=== PATIENT | female | born 1960 | race Caucasian/White ===

== ENCOUNTER → 2017-09-19 09:59 | Outpatient (CLI) | payer OTHER, SELFPAY ==
[2017-09-20 13:29] LABS: Anion Gap 7 (5-15); BUN 15 mg/dL (7-18); BUN/Creat Ratio 20.3 RATIO (10-20); Calcium,Total 8.6 mg/dL (8.5-10.1); Chloride 108 mmol/L (98-107); Cholesterol 161 mg/dL (200); Creatinine, Serum 0.74 mg/dL (0.55-1.02); EST Glomerular Filtration Rate 86 mL/min (>60); Est Glom Filt Rate - Afr Amer 103 mL/min (>60); Glucose 99 mg/dL (74-106); High Density Lipoprotein 64 mg/dL; Potassium 4.2 mmol/L (3.5-5.1); Sodium Level 142 mmol/L (136-145); Triglycerides 83 mg/dL; Very Low Density Lipoprotein 17 mg/dL (5-40)
== END ==
PROVIDERS: Family Provider Family Medicine; PCP Family Medicine; Visit Provider Family Medicine
DX: E78.00 Pure hypercholesterolemia, unspecified (principal)
CPT/HCPCS: 36415; 80048; 80061

== ENCOUNTER → 2018-06-27 09:08 | Outpatient (CLI) | payer OTHER, SELFPAY ==
[2018-06-27 09:56] LABS: CREATININE FINGERSTICK 0.9 mg/dL (0.55-1.02); EGFR FINGERSTICK > 60.0000 mL/min (>60)
--- NOTE | 2018-06-27 10:00 | MRI_ITS ---
STUDY: MRI BRAIN WITH AND WITHOUT CONTRAST REASON FOR EXAM: Female, 58 years old. Vascular congestion in the left eye. TECHNIQUE: Standardized multiplanar fat and water weighted pulse sequences were obtained. 7 ml of Gadavist contrast material was administered intravenously for the contrast portion of the examination. COMPARISON: None. FINDINGS: Normal size of the ventricles and extra-axial spaces for the patient's age. Normal white matter tracts of the supratentorial brain. Normal bilateral basal ganglia. Normal thalami. There is no extra-axial fluid accumulation. Normal flow voids within the major intracranial circulation suggesting patency by spin echo criteria. Normal venous enhancement. There is no enhancing intra-axial or extra-axial abnormality. Normal sella turcica, pituitary gland, infundibular stalk, optic chiasm and hypothalamus. Normal tectal plate and pineal gland. Normal midbrain, edinson and medulla. Normal cerebellum. Normal basal cisterns. Normal bilateral temporal bones. Normal bilateral internal auditory canals. No demonstrated orbital abnormality, within the constraints of a routine brain study. Pronounced mucosal thickening with complete obliteration of the right maxillary sinus. Pronounced mucosal thickening with contraction of the right sphenoid sinus. Mildly. Thickening of the left sphenoid sinus. Mucosal thickening with contraction of the left anterior ethmoid sinus. Suspicious polyp in the left nasal cavity. Normal calvarium and skull base. Normal visualized soft tissue structures. Normal visualized upper cervical spine. MRI/Brain W/WO Contrast IMPRESSION: 1. Normal MRI of the brain with and without intravenous contrast. No suspicious enlargement of the superior ophthalmic veins or cavernous sinuses to suggest dural AV fistula causing orbital vascular congestion. If dural AV fistula remains a strong clinical consideration, cerebral arteriogram with bilateral external carotid arteriogram will be more helpful for further evaluation. 2. Pronounced mucosal thickening with complete obliteration of the right maxillary sinus, pronounced mucosal thickening with contraction of the hypoplastic right sphenoid sinus, mild mucosal thickening of the left sphenoid sinus and mucosal thickening with contraction of the left anterior ethmoid sinus. 3. Suspicious polyp in the left nasal cavity. CT of the paranasal sinuses will be more helpful for paranasal sinus evaluation. Electronically Signed: Jose Saeed MD at 15:40 EST , Service support ,
--- NOTE | 2018-06-27 10:00 | MRI_ITS ---
STUDY: MRA OF THE HEAD WITHOUT CONTRAST REASON FOR EXAM: Female, 58 years old. Vascular congestion, left eye. TECHNIQUE: 3-D [id number] (TOF) imaging was performed with MIPs. The study was performed unenhanced. COMPARISON: None. FINDINGS: Normal bilateral petrous carotid arteries. Normal right cavernous carotid artery with a normal supraclinoid bifurcation. Normal left cavernous carotid artery with a normal supraclinoid bifurcation. Normal right A1 segment of the anterior cerebral artery. Normal left A1 segment of the anterior cerebral artery. Normal intact anterior communicating artery (ACOM). Normal bilateral A2 segments of the anterior cerebral arteries. Normal right M1 and M2 segments of the middle cerebral arteries, with a normal M1 bifurcation. Normal left M1 and M2 segments of the middle cerebral arteries, with a normal M1 bifurcation. Normal right posterior communicating artery (PCOM). Hypoplastic left posterior communicating artery (PCOM). Normal bilateral vertebral arteries. Normal basilar artery with a normal basilar bifurcation. The visualized bilateral superior cerebellar (SCA) arteries are normal. Normal bilateral P1, P2 and visualized P3 segments of the posterior cerebral arteries. There is no demonstrated aneurysm of the [place]. There is no major vessel occlusion or hemodynamically significant stenosis. There is no demonstrated abnormality of the visualized brain. MRI/MRA Head ONLY without Contrast IMPRESSION: Normal MRA of the head Electronically Signed: Jose Saeed MD at 15:41 EST , Service support ,
== END ==
PROVIDERS: Family Provider Family Medicine; PCP Family Medicine; Referring Provider Ophthalmology; Visit Provider Ophthalmology
DX: H11.412 Vascular abnormalities of conjunctiva, left eye (principal); H40.1122 Primary open-angle glaucoma, left eye, moderate stage; H15.89 Other disorders of sclera
CPT/HCPCS: 70544; 70553; A9585

== ENCOUNTER → 2018-07-16 14:57 | Outpatient (CLI) | payer OTHER, SELFPAY ==
--- NOTE | 2018-07-16 15:00 | CT_ITS ---
STUDY: CT MAXILLOFACIAL SINUSES REASON FOR EXAM: Female, 58 years old. Glaucoma, left eye redness. History of right maxillary polyp removal. RADIATION DOSAGE (If Supplied By Facility): CTDIvol = ( 33.06 ) mGy, DLP = ( 846.25 ) mGycm TECHNIQUE: The patient was scanned in a multi detector CT scanner. High resolution axial imaging was performed without the administration of intravenous contrast material. Sagittal and coronal images were reconstructed. Individualized dose optimization techniques were used for this CT. COMPARISON: MRI brain (22/10/2017. FINDINGS: FRONTAL SINUSES: Mild mucoperiosteal thickening extends from the ethmoid sinuses into the base of the left frontal sinus. ETHMOIDAL SINUSES: Partial ethmoid resection with antrectomies bilaterally. Multifocal mildly comparison thickening and a few small round polypoid foci within the anterior ethmoid sinuses. Oval polypoid focus associated with the left superior turbinate, measuring approximately 1.6 cm in length, and 0.6 cm in diameter. MAXILLARY SINUSES: Large mucous retention cyst of the right maxillary sinus with a greatest dimension of approximately 3.4 cm craniocaudal, 3.8 cm anterior-posterior and 2.5 cm transverse. Prominently comparison thickening of the left maxillary sinus in particular at the base. SPHENOIDAL SINUSES: Normal sphenoid sinuses. Mastoid air cells and middle ear cavities are clear. Unremarkable cervical and superficial facial soft tissues. Orbital contents appear normal. Deep facial soft tissues appear normal. Pharyngeal and laryngeal structures appear normal. Mild cervical spondylosis with disc degeneration at C5-C6 without significant stenosis, only mild foraminal narrowing secondary to uncovertebral joint hypertrophy. CT/Sinus/Facial Bone IMPRESSION: There is extensive chronic paranasal sinus disease. Electronically Signed: Oneal Rainey MD at 17:55 EST Tel , Service support ,
--- OUTSIDE RECORDS SUMMARY | 2018-09-01 20:27 | XMS RPT_ITS ---
:1960 Author Organization OHIP Care Team Providers Name Role Phone MOE TOBAR Attending Unavailable PIPPA MEJIA (AIR BAG BUFFER) Referring Unavailable MOE TOBAR Referring Unavailable Anurag Courtney Attending Unavailable Anurag Courtney Primary Care Unavailable Pk Forbes Attending Unavailable Pk Forbes Referring Unavailable Anurag Courtnye Primary Care Unavailable Fox Uriarte Attending Unavailable Fox Uriarte Referring Unavailable Anurag Courtney Primary Care Unavailable PROBLEMS PROBLEMS DATE TYPE CONDITION / CODE ATTENDING STATUS SOURCE 05/26/2018 Active Encounter for NA Active [facility] screening [facility] mammogram for Repository malignant neoplasm of breast / Z12.31(ICD-10) PROCEDURES PROCEDURES No Procedure Records FoundRESULTS RESULTS SINUS/FACIAL BONE Observed: 07/16/2018 Status: F Source: [place] 3:00 PM [facility]ITORY [facility] Imaging Services [address] [place] [address] Sinus/Facial Bone MR#: [id number] Acct: [id number] Name: CONNIE LEVI Rep #: [id number] : 1960 F 58 From: Oneal Rainey MD PCP: Anurag Courtney MD Status: REG CLI Study: Sinus/Facial Bone Date of Exam: 07/16/18 Exam# [id number] Ordering Dr: Fox Uriarte MD STUDY: CT MAXILLOFACIAL SINUSES REASON FOR EXAM: Female, 58 years old. Glaucoma, left eye redness. History of right maxillary polyp removal. RADIATION DOSAGE (If Supplied By Facility): CTDIvol = ( 33.06 ) mGy, DLP = ( 846.25 ) mGycm TECHNIQUE: The patient was scanned in a multi detector CT scanner. High resolution axial imaging was performed without the administration of intravenous contrast material. Sagittal and coronal images were reconstructed. Individualized dose optimization techniques were used for this CT. COMPARISON: MRI brain (22/10/2017. FINDINGS: FRONTAL SINUSES: Mild mucoperiosteal thickening extends from the ethmoid sinuses into the base of the left frontal sinus. ETHMOIDAL SINUSES: Partial ethmoid resection with antrectomies bilaterally. Multifocal mildly comparison thickening and a few small round polypoid foci within the anterior ethmoid sinuses. Oval polypoid focus associated with the left superior turbinate, measuring approximately 1.6 cm in length, and 0.6 cm in diameter. MAXILLARY SINUSES: Large mucous retention cyst of the right maxillary sinus with a greatest dimension of approximately 3.4 cm craniocaudal, 3.8 cm anterior-posterior and 2.5 cm transverse. Prominently comparison thickening of the left maxillary sinus in particular at the base. SPHENOIDAL SINUSES: Normal sphenoid sinuses. Mastoid air cells and middle ear cavities are clear. Unremarkable cervical and superficial facial soft tissues. Orbital contents appear normal. Deep facial soft tissues appear normal. Pharyngeal and laryngeal structures appear normal. Mild cervical spondylosis with disc degeneration at C5-C6 without significant stenosis, only mild foraminal narrowing secondary to uncovertebral joint hypertrophy. CT/Sinus/Facial Bone IMPRESSION: There is extensive chronic paranasal sinus disease. Electronically Signed: Oneal Rainey MD at 17:55 EST Tel , Service support , CC: Fox Uriarte MD; Anurag Courtney MD Veterinarian Assistant: Signed CREATININE FINGERSTICK Collected: 06/27/2018 Status: F Source: [place] 9:35 AM [facility] REPOSITORY TYPE CODE TESTS RESULT OUT OF RANGE REFERENCE UNITS LAB L9100.0210 0.55-1.02 mg/dL Normal CREATININE WB 0.9 LAB L9100.0220 >60 mL/min EGFR WB Normal > 60.0000 Performed By: #### L9100.0200 #### [facility] Laboratory Point of Care [address] [place] [address] BRAIN W/WO CONTRAST Observed: 06/27/2018 Status: F Source: [place] 9:24 AM [facility]ORY [facility] Imaging Services [address] [place] [address] Brain W/WO Contrast MR#: [id number] Acct: [id number] Name: CONNIE LEVI Rep #: [id number] : 1960 F 58 From: Jose Saeed MD PCP: Anurag Courtney MD Status: REG CLI Study: Brain W/WO Contrast Date of Exam: 06/27/18 Exam# [id number] Ordering Dr: Pk Forbes MD ADDENDUM by Jose Saeed M.D. on 06/28/18 at 1151 ADDENDUM COMPARISON: MR of the brain with and without contrast 10/13/2014. IMPRESSION #4: Mucosal thickening of the paranasal sinuses have worsened and the suspicious polyp in the left nasal cavity were not present previously. No other additional findings or changes when compared to 10/13/2014. Electronically Signed: Jose Saeed MD at 11:51 EST , Service support , 06/28/18 1151 Date cc: Pk Forbes MD; Anurag Courtney MD * Signed ADDENDUM by Jose Saeed M.D. on 06/28/18 at 1151 MRI/Brain W/WO Contrast 06/28/18 1157 Date cc: Pk Forbes MD; Anurag Courtney MD * Signed STUDY: MRI BRAIN WITH AND WITHOUT CONTRAST REASON FOR EXAM: Female, 58 years old. Vascular congestion in the left eye. TECHNIQUE: Standardized multiplanar fat and water weighted pulse sequences were obtained. 7 ml of Gadavist contrast material was administered intravenously for the contrast portion of the examination. COMPARISON: None. FINDINGS: Normal size of the ventricles and extra-axial spaces for the patient's age. Normal white matter tracts of the supratentorial brain. Normal bilateral basal ganglia. Normal thalami. There is no extra-axial fluid accumulation. Normal flow voids within the major intracranial circulation suggesting patency by spin echo criteria. Normal venous enhancement. There is no enhancing intra-axial or extra-axial abnormality. Normal sella turcica, pituitary gland, infundibular stalk, optic chiasm and hypothalamus. Normal tectal plate and pineal gland. Normal midbrain, edinson and medulla. Normal cerebellum. Normal basal cisterns. Normal bilateral temporal bones. Normal bilateral internal auditory canals. No demonstrated orbital abnormality, within the constraints of a routine brain study. Pronounced mucosal thickening with complete obliteration of the right maxillary sinus. Pronounced mucosal thickening with contraction of the right sphenoid sinus. Mildly. Thickening of the left sphenoid sinus. Mucosal thickening with contraction of the left anterior ethmoid sinus. Suspicious polyp in the left nasal cavity. Normal calvarium and skull base. Normal visualized soft tissue structures. Normal visualized upper cervical spine. MRI/Brain W/WO Contrast IMPRESSION: 1. Normal MRI of the brain with and without intravenous contrast. No suspicious enlargement of the superior ophthalmic veins or cavernous sinuses to suggest dural AV fistula causing orbital vascular congestion. If dural AV fistula remains a strong clinical consideration, cerebral arteriogram with bilateral external carotid arteriogram will be more helpful for further evaluation. 2. Pronounced mucosal thickening with complete obliteration of the right maxillary sinus, pronounced mucosal thickening with contraction of the hypoplastic right sphenoid sinus, mild mucosal thickening of the left sphenoid sinus and mucosal thickening with contraction of the left anterior ethmoid sinus. 3. Suspicious polyp in the left nasal cavity. CT of the paranasal sinuses will be more helpful for paranasal sinus evaluation. Electronically Signed: Jose Saeed MD at 15:40 EST , Service support , CC: Pk Forbes MD; Anurag Courtney MD Veterinarian Assistant: Signed MRA HEAD ONLY WITHOUT Observed: 06/27/2018 Status: F Source: [place] CONTRAST 9:24 AM [facility] Imaging Services [address] [place] [address] MRA Head ONLY without Contrast MR#: [id number] Acct: [id number] Name: CONNIE LEVI Rep #: [id number] : 1960 F 58 From: Jose Saeed MD PCP: Anurag Courtney MD Status: REG CLI Study: MRA Head ONLY without Contrast Date of Exam: 06/27/18 Exam# [id number] Ordering Dr: Pk Forbes MD STUDY: MRA OF THE HEAD WITHOUT CONTRAST REASON FOR EXAM: Female, 58 years old. Vascular congestion, left eye. TECHNIQUE: 3-D gcqg-sk-xldymo (TOF) imaging was performed with MIPs. The study was performed unenhanced. COMPARISON: None. FINDINGS: Normal bilateral petrous carotid arteries. Normal right cavernous carotid artery with a normal supraclinoid bifurcation. Normal left cavernous carotid artery with a normal supraclinoid bifurcation. Normal right A1 segment of the anterior cerebral artery. Normal left A1 segment of the anterior cerebral artery. Normal intact anterior communicating artery (ACOM). Normal bilateral A2 segments of the anterior cerebral arteries. Normal right M1 and M2 segments of the middle cerebral arteries, with a normal M1 bifurcation. Normal left M1 and M2 segments of the middle cerebral arteries, with a normal M1 bifurcation. Normal right posterior communicating artery (PCOM). Hypoplastic left posterior communicating artery (PCOM). Normal bilateral vertebral arteries. Normal basilar artery with a normal basilar bifurcation. The visualized bilateral superior cerebellar (SCA) arteries are normal. Normal bilateral P1, P2 and visualized P3 segments of the posterior cerebral arteries. There is no demonstrated aneurysm of the [place]. There is no major vessel occlusion or hemodynamically significant stenosis. There is no demonstrated abnormality of the visualized brain. MRI/MRA Head ONLY without Contrast IMPRESSION: Normal MRA of the head Electronically Signed: Jose Saeed MD at 15:41 EST , Service support , CC: kP Forbes MD; Anurag Courtney MD Veterinarian Assistant: Signed CNCO Observed: 05/26/2018 Status: COMPLETED Source: [place] 12:42 PM [facility] [place] REPOSITORY HNO ID: [id number] Author: Mammography Coordinator Service: (none) Author Type: Physician Type: Letter Filed: 05/27/2018 11:32 PM Note Text: May 26, 2018 PID: [id number] Connie Levi [address] [place] [address] Dear Ms. Levi, We are pleased to inform you that the results of your recent breast imaging exam on 05/26/2018 are normal. Your mammogram demonstrates that you have dense breast tissue, which could hide abnormalities. Dense breast tissue, in and of itself, is a relatively common condition. Therefore, this information is not provided to cause undue concern; rather, it is to raise your awareness and promote discussion with your health care provider regarding the presence of dense breast tissue in addition to other risk factors. Early detection of cancer is very important. We also understand recommendations regarding breast cancer screening are controversial. Please discuss with your primary care provider which strategy is best for you and whether a mammogram is right for you. Your imaging studies and report will be kept on file at [facility] as part of your permanent medical record and are available for your continuing care. Thank you for allowing us to help in meeting your health care needs. Sincerely, Dr. Rutherford Interpreting Radiologist [facility] (Normal over 40) [facility] SCREENING Observed: 05/26/2018 Status: F Source: [place] 10:07 AM [facility] REPOSITORY * * *Final Report* * * DATE OF EXAM: May 26 2018 10:07AM DEBBY 0581 - [facility] SCREENING / PROCEDURE REASON: Encounter for screening mammogram for malignant neoplasm of breast * * * * Physician Interpretation * * * * RESULT: #[id number] - NILAY SCREENING BILATERAL DIGITAL SCREENING MAMMOGRAM WITH CAD: 05/26/2018 HISTORY: Screening Mammogram - patient reports NO breast symptoms /priors available for comparison. RESULT: TECHNIQUE: The study was acquired using full field digital technology and interpreted from soft copy. Current study was also evaluated with a Computer Aided Detection (CAD). Comparison is made to exams dated: 05/21/2017 mammogram - [facility], 05/08/2017 mammogram, and 04/05/2016 mammogram - [facility]. The tissue of both breasts is heterogeneously dense. This may lower the sensitivity of mammography. No significant masses, calcifications, or other findings are seen in either breast. There has been no significant interval change. IMPRESSION: NEGATIVE There is no mammographic evidence of malignancy.A 1 year screening mammogram is recommended. Karen Rutherford M.D. fa/penrad:05/26/2018 12:42:59 Yard Switch Operator: Angela HUSSEIN(Julianna)([place]), [facility] letter sent: Normal over 40 Mammogram BI-RADS: 1 Negative Multiple national specialty organizations have released breast cancer screening guidelines for women at average risk for developing breast cancer - guidelines that are based on both evidence and opinion, yet differ on when to start and how often to screen for breast cancer. With representation from Breast Imaging, Internal Medicine, Women's Health, Family Medicine, and Medical/Surgical Oncology, the [facility] has carefully reviewed the data and reached the following consensus: 1) All women should engage in shared decision-making with their providers to decide when to start and how often to screen; 2) All women should have the opportunity to start screening mammography at age 40; 3) For women ages 45-55, we recommend annual screening mammograms; 4) For women ages 55 and over, we support both the transition from an annual to a biennial interval if this aligns more with patient's values and preferences, or continuation with annual screening; 5) All women should discuss with their providers when to stop screening mammograms. Veterinarian Assistant: Dahiana Transcribe Date/Time: May 26 2018 9:37A Dictated by: KAREN RUTHERFORD MD This examination was interpreted and the report reviewed and electronically signed by: KAREN RUTHERFORD MD on May 26 2018 12:42PM EST [id number] Observed: 05/26/2018 Status: COMPLETED Source: [place] 9:43 AM [facility] REPOSITORY HNO ID: [id number] Author: Leti Hussein Service: (none) Author Type: (none) Type: Progress Notes Filed: 05/26/2018 9:44 AM Note Text: Radiology Service Progress Note PATIENT NAME: Connie Levi DATE OF SERVICE: May 26, 2018 TIME: 9:43 AM PATIENT IDENTITY VERIFICATION COMPLETED USING TWO (2) METHODS: Patient confirmed name verbally and Date of . PATIENT GENDER DATA: Female. status: : No status: NO. PATIENT RELEVANT IMPLANT DATA REVIEWED: Not Applicable RADIOLOGY DEPARTMENT: [facility] DATA: Not applicable SIGNED BY: Leti Hussein May 26, 2018 9:43 AM BASIC METABOLIC Collected: 09/20/2017 Status: F Source: [place] PROFILE (BMP) 10:24 AM [facility] REPOSITORY Order Comment: BLOOD DRAWN 09/19/17 TUBE IN LAB. PLEASE RUN BMP LIPID PER Order Date: 09/20/17 Order Info: 0667-1 - BMP Order Info: 38398-0 - LIPID TYPE CODE TESTS RESULT OUT OF RANGE REFERENCE UNITS LAB L501.0100 74-106 mg/dL Normal GLU 99 Result Comment: Please note revised GLUCOSE reference range effective 2017. LAB L501.1000 7-18 mg/dL Normal BUN 15 LAB L501.1100 0.55-1.02 mg/dL Normal CREAT,SERUM 0.74 Result Comment: The validity of the calculated GFR AND GFRAA in patients over 70 years has not been determined. Clinical correlation is essential. LAB L501.1110 >60 mL/min Normal EST GFR 86 Result Comment: Non- GFR Calc LAB L501.1115 >60 mL/min Normal EST GFR - AA 103 Result Comment: GFR Calc LAB L501.1300 10-20 RATIO High BUN/CRE 20.3 LAB L501.2200 8.5-10.1 mg/dL CA Normal 8.6 LAB L501.5300 136-145 mmol/L NA Normal 142 LAB L501.5600 3.5-5.1 mmol/L K Normal 4.2 LAB L501.5900 98-107 mmol/L High CL 108 LAB L501.6100 21.0-32.0 mmol/L Normal CO2 27.0 LAB L501.6200 5-15 Normal GAP 7 Performed By: #### L500.2500, L500.4100 #### [facility] [address] [place], [place], [id number] LIPID PROFILE Collected: 09/20/2017 Status: F Source: [place] 10:24 AM [facility] REPOSITORY Order Comment: BLOOD DRAWN 09/19/17 TUBE IN LAB. PLEASE RUN BMP LIPID PER Order Date: 09/20/17 Order Info: 0667-1 - BMP Order Info: 30031-6 - LIPID TYPE CODE TESTS RESULT OUT OF RANGE REFERENCE UNITS LAB L501.4900 200 mg/dL Normal CHOL 161 Result Comment: <200 mg/dL Desirable 200-240 mg/dL Borderline >240 mg/dL High Risk LAB L501.5000 mg/dL Normal TRIG 83 Result Comment: The drugs N-Acetylcysteine and Metamizole may falsely depress this assay. Serum Triglycerides Reference Interval Normal <150 mg/dL Borderline high 150 - 199 mg/dL High 200 - 499 mg/dL Very High > or = 500 mg/dL LAB L501.6400 mg/dL Normal HDL 64 Result Comment: The drugs N-Acetylcysteine and Metamizole may falsely depress this assay. Reference Range HDL <40 mg/dL Low HDL Cholesterol HDL >or= 60 mg/dL High HDL Cholesterol LAB L501.6500 0-130 mg/dL Normal LDL 80 LAB L501.6600 5-40 mg/dL Normal VLDL 17 Performed By: #### L500.2500, L500.4100 #### [facility] [address] [place], [place], [address] PROGRESS Observed: 09/12/2017 Status: COMPLETED Source: [place] 3:03 PM [facility] REPOSITORY HNO ID: [id number] Author: Zoila Gomez Psr Service: (none) Author Type: (none) Type: Progress Notes Filed: 09/12/2017 3:03 PM Note Text: pap logged. letter sent. Zoila Gomez Psr HPV W/GENOTYPE Collected: 09/03/2017 Status: F Source: [place] 9:58 AM [facility] REPOSITORY TYPE CODE TESTS RESULT OUT OF REFERENCE UNITS RANGE LAB HPVT16 HPV HighRisk Negative for Type 16 HPV DNA high risk type 16 by PCR. LAB HPVT18 HPV HighRisk Negative for Type 18 HPV DNA high risk type 18 by PCR. LAB HPVHRO HPV HighRisk Negative for Other HPV DNA high risk types: 31,33,35,39,45 ,51,52,56,58,5 9,66,68 by PCR. Result Comment: This test was developed and its performance characteristics determined by [facility]'s Moise Gurmeet [facility] Pathology [facility] [place] ([facility]). It has not been cleared or approved by the FDA. [facility] is regulated under CLIA as qualified to perform high-complexity testing. This test is used for clinical purposes. It should not be regarded as inv estigational or for research. Performed By: #### HPVHRR #### [facility] [address] [place], [place] [address] CYTOLOGY Observed: 09/03/2017 Status: C Source: [place] 9:58 AM [facility] REPOSITORY ADDITIONAL PROCEDURES PRESENT Specimen originated from [facility] Specimen #: [id number] Submitting Physician: MOE TOBAR MD SPECIMEN SUBMITTED A: CERVICAL, SCREENING, FLUID FINAL DIAGNOSIS A. CERVICAL, SCREENING, FLUID Satisfactory for interpretation. Negative for intraepithelial lesion or malignancy. Atrophic specimen. Acute inflammation. This specimen has been analyzed by the ThinPrep Imaging System, an automated imaging and review system, which assists the laboratory in evaluating cells on ThinPrep Pap tests. Following automated imaging, selected roa from every slide are reviewed by a gta. ADOLPH Acosta(ASCP) (Electronic Signature) ADDITIONAL PROCEDURE(S) HUMAN PAPILLOMA VIRUS Date Ordered: 09/04/2017 Date Reported: 09/06/2017 Procedure Results and Interpretation Negative for HPV DNA high risk type 16 by PCR. Negative for HPV DNA high risk type 18 by PCR. Negative for HPV DNA high risk types: 31,33,35,39,45,51,52,56,58,59,66,68 by PCR. This test was developed and its performance characteristics determined by [facility]'s [facility] [place] ([facility]). It has not been cleared or approved by the FDA. [facility] is regulated under CLIA as qualified to perform high-complexity testing. This test is used for clinical purposes. It should not be regarded as investigational or for research. 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 The Pap Smear is a screening test for cervical cancer. False negative results occur with all screening tests, emphasizing the need for rescreening at recommended intervals, and clinical correlation. CNOV Observed: 09/03/2017 Status: COMPLETED Source: [place] 9:40 AM [facility] REPOSITORY Office Visit (WOOB) CONNIE LEVI ([id number]) 1960 F Date Time Provider Department 09/03/17 9:40 AM MOE TOBAR WORUEL During your visit today, we recorded the following information about you: Blood pressure Weight Height 138/86 63.7 kg 1.676 m Moe Tobar MD 09/03/2017 10:14 AM Signed Connie Banerjee Gurmeet is a 57 year old who presents for her annual gynecologic exam without complaints. Postmenopausal: Yes HRT use: No. Last Pap: 2012 normal HPV: 2012 negative History of abnormal pap: No Last mammogram: 2016 normal History of abnormal mammogram: Yes Obstetric History T2 L2 SAB0 TAB0 Ectopic0 Multiple0 Live Births0 PAST MEDICAL HISTORY Diagnosis Date - Depression - Fibrocystic breast - Hypercholesterolemia PAST SURGICAL HISTORY Procedure Laterality Date - BX BREAST PERC NEED W/GUID 04/18/11 U/S Needle core bx LOQ left breast solid - BX OF BREAST; INCISIONAL Bx of breast, incisional x3 - FNA WITH IMAGING 01/20/10 U/S FNA left breast cysts x 2 - PAST SURGICAL HISTORY OF 6-1-16 excision ganglion of hand - MI ANESTH,NOSE,RADICAL SINUS SURGERY - REPAIR ING HERNIA,5+Y/O,REDUCIBL Hernia repair, inguinal - US BIOPSY BREAST L 01/29/06 - US BRST CYST ASP PUNC LT 03/15/09 U/S FNA left breast cysts x 2 FAMILY HISTORY Problem Relation Age of Onset - Heart Mother CARDIOMYOPATHY - Breast Cancer Mother - Stroke Mother - Cancer Father LUNG - Diabetes Son JUVENILE - Cancer Mother lung - Cancer Father prostate - Stroke Father SOCIAL HISTORY Social History Substance Use Topics - Smoking status: Former Smoker Years: 10.00 - Smokeless tobacco: Not on file Comment: Quit 19 yrs ago (today is 03/14/2009) - Alcohol use Yes Comment: OCCASIONALLY REVIEW OF SYSTEMS Abdomen: No abdominal pain, nausea, vomiting, diarrhea, or constipation. No bloating, early satiety, indigestion, or increased flatulence. Bladder: No dysuria, gross hematuria, urinary frequency, urinary urgency, or incontinence Breast: No breast lumps, nipple d/c, overlying skin changes, redness or skin retraction Allergies and current medication updated:Yes EXAM: LMP 04/20/2009 GENERAL: pleasant, female in no apparent distress BREAST: soft, non-tender, symmetric, no dominant mass, normal nipple-areolar complex, no lymphadenopathy and no nipple discharge CHEST: Normal inspiratory effort ABDOMEN: soft, non-tender and no masses PELVIC: external genitalia normal, no vulvar lesions, no cervical lesions, good vaginal support, vaginal atrophy, normal appearing perineal body and perianal region BIMANUAL: uterus normal size, shape and consistency, no adnexal masses and non-tender RECTOVAGINAL: rectovaginal exam negative for any masses or nodularity. NEURO: alert and oriented x3,exam grossly non-focal EXTREMITIES: normal ASSESSMENT/PLAN: 1) Health maintenance: Pap done with HPV. Mammogram up to date Nutrition, exercise and routine health maintenance exams reviewed. Colon cancer screening: up to date with screening 2) Follow up one year or sooner as needed 3) Vaginal atrophy - discussed R/B/A, rx vagifem given ANDamp; use reviewed Moe Tobar MD Referring Provider: PIPPA MEJIA (AIR BAG BUFFER) [[id number]] Allergies As of Date: 09/03/2017 Noted Allergy Reaction AUGMENTIN (AMOXICILLIN-POT CLAVUL*01/02/2006 2 - Rash CELEBREX (CELECOXIB) 09/03/2017 14 - Other: See Comments Comments: Bloody nose CORN SILK 01/02/2006 PANOXYL (BENZOYL PEROXIDE) 01/02/2006 Comments: reddness seasonal allergies [Other] 01/03/2006 Date Reviewed: 09/03/2017 Reviewed by: Moe Tobar - Fully Assessed Reason for Visit: Yearly Exam [187] Primary Visit Diagnosis:Special screening examination for human papillomavirus (HPV) [Z11.51] Other Visit Diagnoses:Encounter for gynecological examination without abnormal finding [Z01.419] Screening for malignant neoplasm of cervix [Z12.4] Encounter for screening mammogram for malignant neoplasm of breast [Z12.31] Order(s):PAP FLUID CERVICAL SCREENING [[id number]] Order #: [id number] NILAY SCREENING [[id number]] Order #: [id number] FUTURE Estradiol (VAGIFEM) 10 mcg tab vaginal tabletUse 1 tab vaginally. Use nightly for 2 weeks and then 2 times per week ongoing.Disp: 20 tabletRfl: 11 Prescriptions as of 09/03/2017 Sig: PITAVASTATIN CALCIUM 2 MG TAB* Take by mouth. VITAMIN K2 ORAL Take by mouth. DICYCLOMINE ORAL Take by mouth. LUMIGAN OPHTHALMIC Use in eyes. VITAMIN D-3 ORAL Take by mouth. COMBIGAN OPHTHALMIC Use in eyes. ESTRADIOL 10 MCG VAGINAL TABL* Use 1 tab vaginally. Use nig* MAGNESIUM GLUCONATE ORAL Take by mouth. FOLIC ACID-B12 ORAL Take by mouth once daily. OTC NUTRITIONAL SUPPLEMENT Niacinamide/B6 10mg/50mg otoniel* COQ10 (UBIQUINOL) ORAL Take 200 mg by mouth once otoniel* ROSUVASTATIN 10 MG TABLET Take 10 mg by mouth once steve* MULTIVITAMIN ORAL Take by mouth. Medication notes this encounter FOLIC ACID-B12 ORAL >> Tato Dinh Ma 09/03/2017 9:36 AM >> TATO DINH MA Sep 03, 2017 9:36 AM Not taking ROSUVASTATIN 10 MG TABLET >> Tato Dinh Ma 09/03/2017 9:37 AM >> TATO DINH MA Sep 03, 2017 9:37 AM Not taking Problem List As Of Date 09/03/2017 Noted Resolved DIFFUS CYSTIC MASTOPATHY [N60.19] INVALID FOR* Hypercholesterolemia [E78.00] INVALID FOR* Finger mass, right [R22.31] INVALID FOR*06/19/2016 Ganglion cyst [M67.40] INVALID FOR*06/19/2016 Prescriptions ordered this encounter Disp Refills Start End ESTRADIOL 10 MCG VAGINAL TABLET 20 t* 11 09/03/2017 Class: Print RX Sig: Use 1 tab vaginally. Use nightly for 2 weeks and then 2 times per week ongoing. Disposition: Return in about 1 year (around 09/03/2018) for Routine [employer] exam. Follow-up and Disposition History Recorded Encounter Status:Closed by MOE TOBAR MD on 09/03/17 PROGRESS Observed: 09/03/2017 Status: COMPLETED Source: [place] 9:32 AM [facility] REPOSITORY HNO ID: [id number] Author: Moe Tobar Service: (none) Author Type: Physician Type: Progress Notes Filed: 09/03/2017 10:14 AM Note Text: Connie Levi is a 57 year old who presents for her annual gynecologic exam without complaints. Postmenopausal: Yes HRT use: No. Last Pap: 2012 normal HPV: 2012 negative History of abnormal pap: No Last mammogram: 2016 normal History of abnormal mammogram: Yes Obstetric History T2 L2 SAB0 TAB0 Ectopic0 Multiple0 Live Births0 PAST MEDICAL HISTORY Diagnosis Date - Depression - Fibrocystic breast - Hypercholesterolemia PAST SURGICAL HISTORY Procedure Laterality Date - BX BREAST PERC NEED W/GUID 04/18/11 U/S Needle core bx LOQ left breast solid - BX OF BREAST; INCISIONAL Bx of breast, incisional x3 - FNA WITH IMAGING 01/20/10 U/S FNA left breast cysts x 2 - PAST SURGICAL HISTORY OF 6-1-16 excision ganglion of hand - MI ANESTH,NOSE,RADICAL SINUS SURGERY - REPAIR ING HERNIA,5+Y/O,REDUCIBL Hernia repair, inguinal - US BIOPSY BREAST L 01/29/06 - US BRST CYST ASP PUNC LT 03/15/09 U/S FNA left breast cysts x 2 FAMILY HISTORY Problem Relation Age of Onset - Heart Mother CARDIOMYOPATHY - Breast Cancer Mother - Stroke Mother - Cancer Father LUNG - Diabetes Son JUVENILE - Cancer Mother lung - Cancer Father prostate - Stroke Father SOCIAL HISTORY Social History Substance Use Topics - Smoking status: Former Smoker Years: 10.00 - Smokeless tobacco: Not on file Comment: Quit 19 yrs ago (today is 03/14/2009) - Alcohol use Yes Comment: OCCASIONALLY REVIEW OF SYSTEMS Abdomen: No abdominal pain, nausea, vomiting, diarrhea, or constipation. No bloating, early satiety, indigestion, or increased flatulence. Bladder: No dysuria, gross hematuria, urinary frequency, urinary urgency, or incontinence Breast: No breast lumps, nipple d/c, overlying skin changes, redness or skin retraction Allergies and current medication updated:Yes EXAM: LMP 04/20/2009 GENERAL: pleasant, female in no apparent distress BREAST: soft, non-tender, symmetric, no dominant mass, normal nipple-areolar complex, no lymphadenopathy and no nipple discharge CHEST: Normal inspiratory effort ABDOMEN: soft, non-tender and no masses PELVIC: external genitalia normal, no vulvar lesions, no cervical lesions, good vaginal support, vaginal atrophy, normal appearing perineal body and perianal region BIMANUAL: uterus normal size, shape and consistency, no adnexal masses and non-tender RECTOVAGINAL: rectovaginal exam negative for any masses or nodularity. NEURO: alert and oriented x3,exam grossly non-focal EXTREMITIES: normal ASSESSMENT/PLAN: 1) Health maintenance: Pap done with HPV. Mammogram up to date Nutrition, exercise and routine health maintenance exams reviewed. Colon cancer screening: up to date with screening 2) Follow up one year or sooner as needed 3) Vaginal atrophy - discussed R/B/A, rx vagifem given AND use reviewed Moe Tobar MD ALLERGIES ALLERGIES DATE TYPE / CODE NAME / CODE REACTION SEVERITY SOURCE 09/03/2017 DRUG CELECOXIB OTHER: SEE C [place] INGREDI/[id number]( Clinic Main SNOMED CT) [place] Repository 01/03/2006 Miscellaneous OTHER [place] Allergy/[id number]( [facility] Main SNOMED CT) [place] Repository 01/02/2006 DRUG/[id number](SNO AMOXICILLIN-POT RASH [facility] CT) CLAVULANATE Clinic Main [place] Repository 01/02/2006 DRUG CORN SILK [place] INGREDI/[id number]( [facility] Main SNOMED CT) [place] Repository 01/02/2006 DRUG BENZOYL PEROXIDE [place] INGREDI/[id number]( [facility] Main SNOMED CT) [place] Repository ENCOUNTERS ENCOUNTERS ADMIT/DISCHARGE ACCOUNT ADMITTING ENCOUNTER LOCATION SOURCE NUMBER CLASS 07/16/2018 [id number] [facility] ing:CT Repository 06/27/2018 [id number] [facility] ing:MRI Repository 05/26/2018/05/26/[id number] Main [place] Repository 09/19/2017 [id number] [facility] ing:MFPLAB Repository 09/03/2017/09/05/[id number] Repository PAYERS PAYERS ENCOUNTER GUARANTOR PAYER SUBSCRIBER SOURCE 07/16/2018 ONEAL Deejay Primary CONNIE [id number] Insurance:MEDICAL JOHNSONDOB: [facility] [place] Rep[place] [id number]: 330 [id number] [phone] (HP) Date:1124-79-99MT [address] [place] [phone]: 07/16/2018 Secondary NOT GIVENUNK [place] Insurance:SELF PAY [facility] Number: Effective Repository Date:2018-07-04 06/27/2018 ONEAL Villalba Primary CONNIE [id number] Insurance:MEDICAL JOHNSONDOB: [facility] [id number] Number: Repository [address]Thf: 330 [id number] [phone] () Date:[id number] [address] [place] [phone]: 06/27/2018 Secondary NOT GIVENUNK [place] Insurance:SELF PAY [facility] Number: Effective Repository Date:2018-06-20 09/19/2017 Oneal Villalba Primary CONNIE [id number] Insurance:MEDICAL JOHNSONDOB: [id number] Number: [place]ository [place] [address]Dfb: [id number] Date:[id number] [address] () [address] [place] [phone]: 09/19/2017 Secondary NOT GIVENUNK [place] Insurance:SELF PAY [facility] Number: Effective Repository Date:2017-09-19
== END ==
PROVIDERS: Family Provider Family Medicine; PCP Family Medicine; Referring Provider Otolaryngology Otolaryngology/Facial Plastic Surgery; Visit Provider Otolaryngology Otolaryngology/Facial Plastic Surgery
DX: J32.4 Chronic pansinusitis (principal)
CPT/HCPCS: 70486

== ENCOUNTER → 2018-12-03 | Outpatient (CLI) | payer BC, SELFPAY ==
[2018-12-03 12:45] LABS: Hematocrit 42.9 % (37-47); Mean Corp Hgb Conc 32.6 g/gl (32-36); Mean Corpuscular Hgb 30.9 pg (27.0-32.0); Mean Corpuscular Volume 94.7 fL (81-99); Mean Platelet Vol. 11.7 fl (6.2-12.0); Platelet Count 205 K/mm3 (150-450); RBC Distribution Width CV 13.3 % (11.6-14.6); RBC Distribution Width SD 44.6 fl (35.1-43.9); Red Blood Count 4.53 M/mm3 (4.2-5.4); White Blood Count 6.1 K/mm3 (4.4-11.0)
[2018-12-03 12:55] LABS: Anion Gap 9 (5-15); BUN 17 mg/dL (7-18); Calcium,Total 9.2 mg/dL (8.5-10.1); Chloride 107 mmol/L (98-107); Cholesterol 217 mg/dL (200); Creatinine, Serum 0.85 mg/dL (0.55-1.02); EST Glomerular Filtration Rate 72 mL/min (>60); Est Glom Filt Rate - Afr Amer 88 mL/min (>60); Glucose 85 mg/dL (74-106); High Density Lipoprotein 76 mg/dL; Potassium 4.2 mmol/L (3.5-5.1); Sodium Level 144 mmol/L (136-145); Triglycerides 65 mg/dL; Very Low Density Lipoprotein 13 mg/dL (5-40)
[2018-12-03 12:59] LABS: Scan Indicated on CBC? Y/N NO
[2018-12-03 14:29] LABS: Vitamin D,25 Hydroxy 29.3 ng/mL (29.95-100.01)
== END | disposition home or self-care (01) ==
PROVIDERS: Family Provider Family Medicine; PCP Family Medicine; Referring Provider Family Medicine; Visit Provider Family Medicine
DX: K58.9 Irritable bowel syndrome, unspecified (principal); R53.81 Other malaise; E78.00 Pure hypercholesterolemia, unspecified
CPT/HCPCS: 36415; 80048; 80061; 82306; 85027

== ENCOUNTER → 2019-01-14 11:25 | Outpatient (CLI) | payer BC, SELFPAY ==
[2019-01-14 14:37] LABS: Ferritin 111 ng/mL (8-252); Thyroid Stim Hormone (TSH) 2.77 uIU/mL (0.358-3.74)
[2019-01-15 09:56] LABS: Thyroid Peroxidase AB 18 IU/mL (0-34)
== END ==
PROVIDERS: Family Provider Family Medicine; PCP Family Medicine; Referring Provider Family Medicine; Visit Provider Physician Assistant
DX: L65.9 Nonscarring hair loss, unspecified (principal)
CPT/HCPCS: 36415; 82728; 84443; 86376

== ENCOUNTER → 2019-11-25 09:54 | Outpatient (CLI) | payer BC, SELFPAY ==
[2019-11-25 12:43] LABS: ALB/GLOB Ratio 1.1 RATIO (0.9-2.4); AST(SGOT) 27 U/L (15-37); Alanine Aminotransfer ALT/SGPT 35 U/L (13-56); Alkaline Phosphatase 55 U/L (45-117); Anion Gap 4 (5-15); BUN 16 mg/dL (7-18); BUN/Creat Ratio 18.8 RATIO (10-20); Calcium,Total 9.4 mg/dL (8.5-10.1); Chloride 109 mmol/L (98-107); Cholesterol 190 mg/dL (200); Creatinine, Serum 0.85 mg/dL (0.55-1.02); EST Glomerular Filtration Rate 72 mL/min (>60); Est Glom Filt Rate - Afr Amer 87 mL/min (>60); Globulin 3.5 g/dL (2.2-4.2); Glucose 98 mg/dL (74-106); High Density Lipoprotein 61 mg/dL; Potassium 4.5 mmol/L (3.5-5.1); Protein, Total 7.5 g/dL (6.4-8.2); Sodium Level 142 mmol/L (136-145); Triglycerides 128 mg/dL; Very Low Density Lipoprotein 26 mg/dL (5-40)
== END ==
PROVIDERS: PCP Family Medicine; Referring Provider Family Medicine; Visit Provider Family Medicine
DX: E78.00 Pure hypercholesterolemia, unspecified (principal)
CPT/HCPCS: 36415; 80053; 80061

== ENCOUNTER → 2020-07-20 11:36 | Outpatient (CLI) | payer BC, SELFPAY ==
[2020-07-20 13:43] LABS: Cholesterol 251 mg/dL (200); High Density Lipoprotein 89 mg/dL; Triglycerides 95 mg/dL; Very Low Density Lipoprotein 19 mg/dL (5-40)
== END ==
PROVIDERS: PCP Family Medicine; Referring Provider Family Medicine; Visit Provider Family Medicine
DX: E78.00 Pure hypercholesterolemia, unspecified (principal)
CPT/HCPCS: 36415; 80061

== ENCOUNTER → 2020-12-06 10:39 | Outpatient (CLI) | payer BC, SELFPAY ==
[2020-12-06 12:37] LABS: Cholesterol 250 mg/dL (200); High Density Lipoprotein 76 mg/dL; Triglycerides 129 mg/dL; Very Low Density Lipoprotein 26 mg/dL (5-40)
== END ==
PROVIDERS: PCP Family Medicine; Referring Provider Family Medicine; Visit Provider Family Medicine
DX: E78.00 Pure hypercholesterolemia, unspecified (principal)
CPT/HCPCS: 36415; 80061

== ENCOUNTER → 2021-03-08 09:02 | Outpatient (CLI) | payer BC, SELFPAY ==
[2021-03-08 11:16] LABS: ALB/GLOB Ratio 1.1 RATIO (0.9-2.4); AST(SGOT) 44 U/L (15-37); Alanine Aminotransfer ALT/SGPT 53 U/L (13-56); Albumin, Serum 4.2 g/dL (3.2-5.0); Alkaline Phosphatase 68 U/L (45-117); Anion Gap 6 (5-15); BUN 16 mg/dL (7-18); BUN/Creat Ratio 20.1 RATIO (10-20); Calcium,Total 9.3 mg/dL (8.5-10.1); Chloride 107 mmol/L (98-107); Cholesterol 210 mg/dL (200); EST Glomerular Filtration Rate 77 mL/min (>60); Est Glom Filt Rate - Afr Amer 94 mL/min (>60); Globulin 3.8 g/dL (2.2-4.2); Glucose 93 mg/dL (74-106); High Density Lipoprotein 78 mg/dL; Potassium 4.3 mmol/L (3.5-5.1); Sodium Level 140 mmol/L (136-145); Triglycerides 84 mg/dL; Very Low Density Lipoprotein 17 mg/dL (5-40)
== END ==
PROVIDERS: PCP Family Medicine; Referring Provider Family Medicine; Visit Provider Family Medicine
DX: E78.00 Pure hypercholesterolemia, unspecified (principal)
CPT/HCPCS: 36415; 80053; 80061

== ENCOUNTER → 2021-03-28 09:43 | Outpatient (CLI) | payer BC, SELFPAY ==
--- NOTE | 2021-03-28 09:48 | CDU_ITS ---
Reason For Study: stenosis Rt. Velocities/BP Lt. Velocities/BP Prox CCA 85.2/14.7 cm/sec. Prox CCA 117.8/23.9 cm/sec. Mid CCA 83.9/18.6 cm/sec. Mid CCA 91.7/17.3 cm/sec. Dist CCA 74.7/14.7 cm/sec. Dist CCA 85.2/21.3 cm/sec. Prox ICA 47.3/16.0 cm/sec. Prox ICA 51.2/14.7 cm/sec. Mid ICA 81.2/27.8 cm/sec. Mid ICA 63.0/17.3 cm/sec. Dist ICA 87.8/26.5 cm/sec. Dist ICA 82.6/29.1 cm/sec. Rt. ICA/CCA = 1.0. Lt. ICA/CCA = .9. Prox ECA 85.2/14.7 cm/sec. Prox ECA 79.9/10.8 cm/sec. Rt. Vert. 51.3/12.1 cm/sec. Lt. Vert. 46.0/14.7 cm/sec. Right Extracranial There is intimal thickening but no significant atherosclerotic plaque noted in the right common carotid artery. There is no significant atherosclerotic plaque noted in the right internal carotid artery. There is intimal thickening but no significant atherosclerotic plaque noted in the right external carotid artery. Antegrade flow is noted in the right vertebral artery. Left Extracranial There is intimal thickening but no significant atherosclerotic plaque noted in the left common carotid artery. There is no significant atherosclerotic plaque noted in the left internal carotid artery. There is homogeneous, smooth atherosclerotic plaque noted in the left external carotid artery. Antegrade flow is noted in the left vertebral artery. Procedure Carotid Duplex 25292. This is a Carotid Duplex examination using B-mode, color flow and specral Doppler. The exam was diagnostic. Exam performed in department. VL/Carotid Duplex Ultrasound Interpretation Summary No significant atherosclerotic plaque or stenosis noted in the internal carotid arteries bilaterally. Flow within the vertebral arteries is antegrade bilaterally. Ordering Physician: Anurag Arguello Performed By: Lawson Segovia RVT
== END ==
PROVIDERS: PCP Family Medicine; Referring Provider Family Medicine; Visit Provider Family Medicine
DX: I65.29 Occlusion and stenosis of unspecified carotid artery (principal)
CPT/HCPCS: 93880

== ENCOUNTER → 2022-01-04 | Outpatient (CLI) | payer BC, SELFPAY ==
[2022-01-04 15:50] LABS: Absolute Lymphocyte Count 1.31 X10^3/uL (0.83-4.51); Absolute Neutrophil Count 4.1 X10^3/uL (2.0-7.7); Basophil# 0.05 X10^3/uL; Basophil% 0.8 % (0-1); Eosinophil# 0.19 X10^3/uL; Hematocrit 43.6 % (37-47); Hemoglobin 14.2 g/dL (12.0-15.0); Lymphocyte # 1.31 X10^3/ul (0.83-4.51); Lymphocyte % 20.4 % (19-41); Mean Corp Hgb Conc 32.6 g/dL (32-36); Mean Corpuscular Hgb 31.7 pg (27.0-32.0); Mean Corpuscular Volume 97.3 fL (81-99); Mean Platelet Vol. 11.4 fl (6.2-12.0); Monocyte# 0.74 X10^3/uL; Monocyte% 11.5 % (0-10); NRBC Flagged by Analyzer 0 % (0-5); Neutrophil # 4.13 X10^3/uL (2.7-7.7); Neutrophil % 64.1 % (47-70); Platelet Count 209 K/mm3 (150-450); RBC Distribution Width CV 12.7 % (11.6-14.6); RBC Distribution Width SD 45.5 fl (35.1-43.9); Red Blood Count 4.48 M/mm3 (4.2-5.4); White Blood Count 6.4 K/mm3 (4.4-11.0)
[2022-01-04 16:01] LABS: ALB/GLOB Ratio 1.1 RATIO (0.9-2.4); AST(SGOT) 31 U/L (15-37); Alanine Aminotransfer ALT/SGPT 42 U/L (13-56); Albumin, Serum 4.3 g/dL (3.2-5.0); Alkaline Phosphatase 57 U/L (45-117); Anion Gap 7 (5-15); BUN 16 mg/dL (7-18); BUN/Creat Ratio 22.3 RATIO (10-20); Calcium,Total 9.3 mg/dL (8.5-10.1); Chloride 104 mmol/L (98-107); Creatinine, Serum 0.72 mg/dL (0.55-1.02); EST Glomerular Filtration Rate 87 mL/min (>60); Est Glom Filt Rate - Afr Amer 105 mL/min (>60); Globulin 3.8 g/dL (2.2-4.2); Glucose 105 mg/dL (74-106); Potassium 4.2 mmol/L (3.5-5.1); Protein, Total 8.1 g/dL (6.4-8.2); Sodium Level 137 mmol/L (136-145)
== END | disposition home or self-care (01) ==
LOC: MFPLAB 11:46
PROVIDERS: PCP Family Medicine; Visit Provider Physician Assistant
DX: L27.0 Generalized skin eruption due to drugs and medicaments taken internally (principal); L64.8 Other androgenic alopecia; L29.9 Pruritus, unspecified
CPT/HCPCS: 36415; 80053; 85025

== ENCOUNTER → 2022-03-06 | Outpatient (CLI) | payer BC, SELFPAY ==
--- NOTE | 2022-03-06 13:00 | LES_PTH ---
PATIENT: HARMAN FRIAS [facility] U[facility][id number] AGE/SX: 62/F ROOM: RE03/06/[address]: Dr. Moise Jason MD : 1960 BED: DIS: 03/06/2022 SPEC #: [id number] RECD: 03/06/22 14:47 STATUS: YESI RECarmina #: [id number] MISA: 03/06/22 13:[address]: Moise Jason DEPT: SURGICAL PATHOLOGY RECD BY: Rashida [place] ENTERED: 03/07/22 07:11 SP TYPE: Lesion OTHR DR: Dr. Anurag Arguello MD Tissues: Skin of lip, NOS Procedures: Surgery Specimen Level IV HEADER OPERATION: Excision left upper lip lesion PRE-OP DIAGNOSIS: Facial lesion TISSUE SUBMITTED: Left upper lip tissue MICROSCOPIC DIAGNOSIS Left upper lip tissue, excision: Fragments of squamous mucosa and underlying tissue with focal mild chronic inflammation. Negative for malignancy. See comment. REAGAN:tho 03/08/2022 COMMENT Clinical correlation is necessary. MICROSCOPIC DESCRIPTION Slides are reviewed. GROSS DESCRIPTION Received in fixative is one container labeled with the patient's name and designated left upper lip lesion. The specimen consists of a U-shaped piece of calderon mucosal tissue measuring 0.8 x 0.5 x 0.1 cm. Two smaller pieces of calderon mucosal tissue are also noted measuring in aggregate 0.5 x 0.3 x 0.1 cm. The largest piece is inked and serially sectioned. The entire specimen is submitted in one cassette. / REAGAN:tho 03/07/2022 TC:3 CPT: 41548
== END | disposition home or self-care (01) ==
LOC: LABSPEC 14:50
PROVIDERS: PCP Family Medicine; Visit Provider Surgery
DX: L98.9 Disorder of the skin and subcutaneous tissue, unspecified (principal)
CPT/HCPCS: 88305

== ENCOUNTER → 2022-04-11 | Outpatient (CLI) | payer BC, SELFPAY ==
[2022-04-11 15:34] LABS: Absolute Lymphocyte Count 1.14 X10^3/uL (0.83-4.51); Absolute Neutrophil Count 3.7 X10^3/uL (2.0-7.7); Basophil# 0.04 X10^3/uL; Basophil% 0.7 % (0-1); Eosinophil# 0.16 X10^3/uL; Eosinophils% 2.8 % (0-5); Hematocrit 42.1 % (37-47); Hemoglobin 13.6 g/dL (12.0-15.0); Lymphocyte # 1.14 X10^3/ul (0.83-4.51); Lymphocyte % 20.3 % (19-41); Mean Corp Hgb Conc 32.3 g/dL (32-36); Mean Corpuscular Hgb 31.6 pg (27.0-32.0); Mean Corpuscular Volume 97.9 fL (81-99); Mean Platelet Vol. 12.4 fl (6.2-12.0); Monocyte# 0.54 X10^3/uL; Monocyte% 9.6 % (0-10); NRBC Flagged by Analyzer 0 % (0-5); Neutrophil # 3.73 X10^3/uL (2.7-7.7); Neutrophil % 66.4 % (47-70); Platelet Count 175 K/mm3 (150-450); RBC Distribution Width CV 13.4 % (11.6-14.6); RBC Distribution Width SD 48.1 fl (35.1-43.9); White Blood Count 5.6 K/mm3 (4.4-11.0)
[2022-04-11 16:38] LABS: Hemoglobin A1c 5.6 % (3.8-5.6)
[2022-04-11 17:31] LABS: ALB/GLOB Ratio 1.3 RATIO (0.9-2.4); AST(SGOT) 35 U/L (15-37); Alanine Aminotransfer ALT/SGPT 37 U/L (13-56); Albumin, Serum 4.3 g/dL (3.2-5.0); Alkaline Phosphatase 65 U/L (45-117); Anion Gap 9 (5-15); BUN 16 mg/dL (7-18); BUN/Creat Ratio 19.4 RATIO (10-20); Calcium,Total 9.7 mg/dL (8.5-10.1); Chloride 106 mmol/L (98-107); Cholesterol 213 mg/dL (200); Creatinine, Serum 0.83 mg/dL (0.55-1.02); EST Glomerular Filtration Rate 74 mL/min (>60); Est Glom Filt Rate - Afr Amer 90 mL/min (>60); Globulin 3.2 g/dL (2.2-4.2); Glucose 98 mg/dL (74-106); High Density Lipoprotein 80 mg/dL; Potassium 4.4 mmol/L (3.5-5.1); Protein, Total 7.5 g/dL (6.4-8.2); Sodium Level 141 mmol/L (136-145); Triglycerides 75 mg/dL; Very Low Density Lipoprotein 15 mg/dL (5-40)
== END | disposition home or self-care (01) ==
LOC: MFPLAB 11:24
PROVIDERS: PCP Family Medicine; Referring Provider Family Medicine; Visit Provider Family Medicine
DX: E78.00 Pure hypercholesterolemia, unspecified (principal); R73.09 Other abnormal glucose
CPT/HCPCS: 36415; 80053; 80061; 83036; 85025

== ENCOUNTER → 2023-03-19 | Outpatient (CLI) | payer MEDICARE, SELFPAY ==
[2023-03-19 15:53] LABS: ALB/GLOB Ratio 1.3 RATIO (0.9-2.4); AST(SGOT) 43 U/L (15-37); Alanine Aminotransfer ALT/SGPT 49 U/L (13-56); Albumin, Serum 4.3 g/dL (3.2-5.0); Alkaline Phosphatase 61 U/L (45-117); Anion Gap 6 (5-15); BUN 15 mg/dL (7-18); BUN/Creat Ratio 18.5 RATIO (10-20); Calcium,Total 9.2 mg/dL (8.5-10.1); Chloride 104 mmol/L (98-107); Cholesterol 213 mg/dL (200); Creatinine, Serum 0.81 mg/dL (0.55-1.02); EST Glomerular Filtration Rate 75 mL/min (>60); Est Glom Filt Rate - Afr Amer 91 mL/min (>60); Globulin 3.4 g/dL (2.2-4.2); Glucose 103 mg/dL (74-106); High Density Lipoprotein 88 mg/dL; Protein, Total 7.7 g/dL (6.4-8.2); Sodium Level 137 mmol/L (136-145); Triglycerides 77 mg/dL; Very Low Density Lipoprotein 15 mg/dL (5-40)
[2023-03-19 16:21] LABS: Hemoglobin A1c 5.4 % (3.8-5.6)
== END | disposition home or self-care (01) ==
PROVIDERS: PCP Family Medicine; Visit Provider Family Medicine
DX: R73.09 Other abnormal glucose (principal); E78.00 Pure hypercholesterolemia, unspecified
CPT/HCPCS: 36415; 80053; 80061; 83036

== ENCOUNTER → 2023-05-16 | Outpatient (CLI) | payer MEDICARE, SELFPAY ==
[2023-05-16 16:01] LABS: ALB/GLOB Ratio 1.1 RATIO (0.9-2.4); AST(SGOT) 40 U/L (15-37); Alanine Aminotransfer ALT/SGPT 52 U/L (13-56); Albumin, Serum 4.2 g/dL (3.2-5.0); Alkaline Phosphatase 63 U/L (45-117); Anion Gap 8 (5-15); BUN 15 mg/dL (7-18); BUN/Creat Ratio 19.2 RATIO (10-20); Calcium,Total 8.8 mg/dL (8.5-10.1); Chloride 106 mmol/L (98-107); Cholesterol 229 mg/dL (200); Creatinine, Serum 0.78 mg/dL (0.55-1.02); EST Glomerular Filtration Rate 79 mL/min (>60); Est Glom Filt Rate - Afr Amer 95 mL/min (>60); Globulin 3.8 g/dL (2.2-4.2); Glucose 85 mg/dL (74-106); High Density Lipoprotein 86 mg/dL; Potassium 4.1 mmol/L (3.5-5.1); Sodium Level 139 mmol/L (136-145); Thyroid Stim Hormone (TSH) 2.96 uIU/mL (0.358-3.74); Triglycerides 103 mg/dL; Very Low Density Lipoprotein 21 mg/dL (5-40)
== END | disposition home or self-care (01) ==
LOC: MFPLAB 11:52
PROVIDERS: PCP Family Medicine; Visit Provider Family Medicine
DX: F41.1 Generalized anxiety disorder (principal); E78.00 Pure hypercholesterolemia, unspecified
CPT/HCPCS: 36415; 80053; 80061; 84443

== ENCOUNTER → 2023-12-06 | Outpatient (CLI) | payer MEDICARE, SELFPAY ==
[2023-12-06 12:49] LABS: Anion Gap 4 (5-15); BUN 14 mg/dL (7-18); BUN/Creat Ratio 16.7 RATIO (10-20); Calcium,Total 9.8 mg/dL (8.5-10.1); Chloride 109 mmol/L (98-107); Cholesterol 221 mg/dL (200); Creatinine, Serum 0.84 mg/dL (0.55-1.02); EST Glomerular Filtration Rate 72 mL/min (>60); Est Glom Filt Rate - Afr Amer 87 mL/min (>60); Glucose 109 mg/dL (74-106); High Density Lipoprotein 94 mg/dL; Potassium 3.9 mmol/L (3.5-5.1); Sodium Level 141 mmol/L (136-145); Triglycerides 63 mg/dL; Very Low Density Lipoprotein 13 mg/dL (5-40)
== END | disposition home or self-care (01) ==
LOC: MTLAB 10:15
PROVIDERS: PCP Family Medicine; Referring Provider Nurse Practitioner Family; Visit Provider Nurse Practitioner Family
DX: E78.00 Pure hypercholesterolemia, unspecified (principal)
CPT/HCPCS: 36415; 80048; 80061

== ENCOUNTER → 2024-06-11 | Outpatient (CLI) | payer MEDICARE, SELFPAY ==
[2024-06-11 14:56] LABS: Absolute Lymphocyte Count 1.41 X10^3/uL (0.83-4.51); Absolute Neutrophil Count 4.4 X10^3/uL (2.0-7.7); Basophil# 0.08 X10^3/uL; Basophil% 1.2 % (0-1); Hematocrit 43.4 % (37-47); Hemoglobin 14.2 g/dL (12.0-15.0); Lymphocyte # 1.41 X10^3/ul (0.83-4.51); Lymphocyte % 21.2 % (19-41); Mean Corp Hgb Conc 32.7 g/dL (32-36); Mean Corpuscular Hgb 31.8 pg (27.0-32.0); Mean Corpuscular Volume 97.3 fL (81-99); Mean Platelet Vol. 11.3 fl (6.2-12.0); Monocyte# 0.53 X10^3/uL; NRBC Flagged by Analyzer 0 % (0-5); Neutrophil # 4.42 X10^3/uL (2.7-7.7); Neutrophil % 66.3 % (47-70); Platelet Count 210 K/mm3 (150-450); RBC Distribution Width CV 13.4 % (11.6-14.6); RBC Distribution Width SD 48.8 fl (35.1-43.9); Red Blood Count 4.46 M/mm3 (4.2-5.4); White Blood Count 6.7 K/mm3 (4.4-11.0)
[2024-06-11 15:12] LABS: ALB/GLOB Ratio 1.2 RATIO (0.9-2.4); AST(SGOT) 43 U/L (15-37); Alanine Aminotransfer ALT/SGPT 55 U/L (13-56); Albumin, Serum 4.2 g/dL (3.2-5.0); Alkaline Phosphatase 57 U/L (45-117); Anion Gap 6 (5-15); BUN 17 mg/dL (7-18); BUN/Creat Ratio 21.4 RATIO (10-20); Calcium,Total 9.9 mg/dL (8.5-10.1); Chloride 107 mmol/L (98-107); Cholesterol 227 mg/dL (200); EST Glomerular Filtration Rate 77 mL/min (>60); Est Glom Filt Rate - Afr Amer 93 mL/min (>60); Globulin 3.5 g/dL (2.2-4.2); Glucose 89 mg/dL (74-106); High Density Lipoprotein 100 mg/dL; Potassium 4.4 mmol/L (3.5-5.1); Protein, Total 7.7 g/dL (6.4-8.2); Sodium Level 140 mmol/L (136-145); Triglycerides 79 mg/dL; Very Low Density Lipoprotein 16 mg/dL (5-40)
[2024-06-11 16:24] LABS: Hemoglobin A1c 5.4 % (3.8-5.6)
== END | disposition home or self-care (01) ==
PROVIDERS: PCP Family Medicine; Referring Provider Family Medicine; Visit Provider Family Medicine
DX: E78.00 Pure hypercholesterolemia, unspecified (principal); R73.09 Other abnormal glucose
CPT/HCPCS: 36415; 80053; 80061; 83036; 85025

== ENCOUNTER 2024-07-18 23:11 | Emergency (ER) | payer MEDICARE, SELFPAY ==
[2024-07-18 23:12] VITALS: BP 145/96; PULSE 76; RESP 18; TEMP 36.4; O2SAT 96; BMI 23.3
[2024-07-18] MEDS: Lidocaine 2% /Epi 1:100 (20ml) 20 ML VIAL INFILT (23:28)
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
== END 2024-07-19 00:40 | disposition home or self-care (01) ==
PROVIDERS: Emergency Provider Emergency Medicine; PCP Family Medicine; Visit Provider Emergency Medicine
DX: S61.412A Laceration without foreign body of left hand, initial encounter (principal); X58.XXXA Exposure to other specified factors, initial encounter; F32.A Depression, unspecified; E78.00 Pure hypercholesterolemia, unspecified; J30.2 Other seasonal allergic rhinitis; Z79.899 Other long term (current) drug therapy; Z87.891 Personal history of nicotine dependence
CPT/HCPCS: 12001; 99284

== ENCOUNTER → 2024-12-16 | Outpatient (CLI) | payer MEDICARE, SELFPAY ==
--- NOTE | 2024-12-16 10:50 | BD_ITS ---
PROCEDURE: DEXA BONE DENSITY STUDY 12/16/2024 REASON FOR EXAM: F, age 64 y/o . Postmenopausal. TECHNIQUE: DXA scan of sites with data reported below. REFERENCE LINKS: ISCD Adult Positions COMPARISON: None FINDINGS: BMD and T-SCORES Lumbar spine: 0.969 g/cm2, T-score -0.7 Levels: L1 through L4 Left femoral neck: 0.756 g/cm2, T-score -0.8 Femoral neck comparison data not recommended for monitoring change. Left total hip: 0.778 g/cm2, T-score -1.3 Right femoral neck: 0.700 g/cm2, T-score -1.3 Femoral neck comparison data not recommended for monitoring change. Right total hip: 0.754 g/cm2, T-score -1.5 The World Health Organization has defined the following categories based on bone density: Normal bone density: T-score equal to or greater than -1.0 Osteopenia: T-score between -1.0 and -2.5 Osteoporosis: T-score equal to or less than -2.5 The patient does meet the pharmacological treatment recommendations for prevention of osteoporosis. BD/Dexa Bone Density Study IMPRESSION: OSTEOPENIA. Recommend follow-up as clinically warranted. Reading Location: [place]
== END | disposition home or self-care (01) ==
PROVIDERS: PCP Family Medicine; Referring Provider Family Medicine; Visit Provider Family Medicine
DX: Z78.0 Asymptomatic menopausal state (principal)
CPT/HCPCS: 77080

== ENCOUNTER → 2025-06-22 | Outpatient (CLI) | payer MEDICARE, SELFPAY ==
[2025-06-22 14:54] LABS: Hematocrit 43.3 % (37-47); Hemoglobin 14.5 g/dL (12.0-15.0); Immature Granulocytes Count 0.010 X10^3/uL (0.0-0.0); Mean Corp Hgb Conc 33.5 g/dL (32-36); Mean Corpuscular Volume 96.9 fL (81-99); Mean Platelet Vol. 11.3 fl (6.2-12.0); NRBC Flagged by Analyzer 0 % (0-5); Platelet Count 192 K/mm3 (150-450); RBC Distribution Width CV 12.6 % (11.6-14.6); RBC Distribution Width SD 45.5 fl (35.1-43.9); Red Blood Count 4.47 M/mm3 (4.2-5.4); White Blood Count 5.4 K/mm3 (4.4-11.0)
[2025-06-22 16:03] LABS: AST(SGOT) 55 U/L (<=31); Alanine Aminotransfer ALT/SGPT 57 U/L (<=34); Albumin, Serum 4.7 g/dL (3.4-4.8); Alkaline Phosphatase 66 U/L (35-104); Anion Gap 13 (5-15); BUN 10 mg/dL (4-19); BUN/Creat Ratio 12.8 RATIO (10-20); Calcium,Total 10.2 mg/dL (7.6-11.0); Carbon Dioxide 23.7 mmol/L (21.0-32.0); Chloride 105 mmol/L (98-108); Cholesterol 236 mg/dL (<=200); Globulin 2.8 g/dL (2.2-4.2); Glucose 89 mg/dL (70-99); Low Density Lipoprotein Calc. 129 mg/dL; Potassium 4.3 mmol/L (3.3-5.1); Triglycerides 182 mg/dL; Very Low Density Lipoprotein 36 mg/dL (5-40); Vitamin D,25 Hydroxy 37.6 ng/mL (30-100); cholesterol:hdl ratio screen 3.15
--- OUTSIDE RECORDS SUMMARY | 2025-06-22 18:12 | XMS RPT_ITS | CCD ---
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 bleeding disorder or blood thinner use. She states she is right-hand dominant. With concern she may need sutures she comes in for evaluation [facility] Medical History Depression High cholesterol Seasonal allergies Home Medications ???Medication ???Instructions ???Recorded ???Last Taken ???Type calcium acetate 667 mg tablet 667 mg PO ONCE 02/19/22 Unknown History coenzyme Q10 75 mg capsule (Ultra 75 mg PO DAILY 02/19/22 Unknown History CoQ10) fexofenadine 180 mg tablet 180 mg PO DAILY 02/19/22 Unknown History (Marcella Allergy) multivitamin 1 tab PO DAILY 02/19/22 Unknown History rosuvastatin 10 mg tablet (Crestor) 10 mg PO DAILY 02/19/22 Unknown History sertraline 150 mg capsule 150 mg PO DAILY 02/19/22 Unknown History amoxicillin 500 mg capsule 500 mg PO TID #9 caps 03/06/22 Unknown Rx Allergy/AdvReac Type Severity Reaction Status Date / Time Seasonal Allergies: Uncoded Allergy NEEDS Verified 07/18/24 23:15 FOLLOW-UP Surgical History S/P breast biopsy S/P hernia repair Social History Smoking Status: Former smoker alcohol intake: current ROS ROS ED Constitutional Constitutional ED: Denies chills or fever(s) ENT ENT ED: Denies sore throat Cardiovascular Cardiovascular: Denies chest pain Respiratory/Chest Respiratory/Chest: Denies cough or dyspnea Gastrointestinal Gastrointestinal: Denies abdominal pain, diarrhea, nausea or vomiting Genitourinary Genitourinary ED: Denies dysuria Musculoskeletal Musculoskeletal: Reports other Details: Positive left hand pain Integumentary Reports other Details: Positive left hand laceration Neurologic Neurologic: Denies headache(s), paresthesias or weakness Hematologic/Lymphati c Hematologic/Lymphati c: Denies easy bleeding or easy bruising EXAM Physical Exam Const Vital Signs: 07/18/24 23:12 Temperature 97.6 F L Temperature Source Oral Pulse Rate 76 Respiratory Rate 18 Blood Pressure 145/96 H Blood Pressure Mean 112 Pulse Ox 96 Oxygen Delivery Method Room Air Positive well nourished and well developed General Appearance ED: well developed HEENT HEENT Narrative: Normocephalic atraumatic Eyes PERRL and EOMs intact bilaterally Neck supple Resp normal respiratory effort and clear to auscultation bilaterally Cardio regular rate and regular rhythm Extremity Extremity Narrative: Left upper extremity is neurovascularly intact; AIN/PIN are intact and normal. Patient has a linear subcutaneous layer deep laceration in the shape of an L over top the dorsal aspect of her left hand at the second metacarpal region. There is minimal ooze of blood and no foreign body. Wound is 2 cm in length. No signs of ligamentous or tendon injury. No bony deformity or joint effusion. No subungual hematoma Remainder of the exam is normal Neuro oriented x3, CN's II-XII intact bilaterally and no sensory deficits noted Sensorium / Orientation: alert Motor Exam: strength 5/5 throughout Psych mental status grossly normal Skin Skin Narrative: Laceration to the left hand as documented above MDM MDM MDM Narrative Medical decision making narrative: Patient arrived to the ER hypertensive but otherwise with stable vitals. She stained a laceration to her nondominant hand. We discussed that there is a potential for foreign body versus fracture as she was unsure of what caused a laceration. Patient has full active range of motion and no obvious foreign body on exam so she does not want an x-ray obtained. We also discussed tetanus update but she states that she does not want this either as she has concern for complications from the injection. Therefore at this time the patient does not have any signs of ligamentous or tendon injury there is no obvious bony fracture or deformity and therefore there is no need for emergent o (more content not included)... Normal [facility] CBC W/Diff, Automatedon 11-0 -2023 Absolute Lymph 1.41 X10 3/uL Normal 0.83-4.51 [facility] Comment on above: Order Comment: Order Date: 06/11/24 Order Info: 0184-1 - CBCD Performed By: #### L 501.9985, L100.0100 #### [facility] [address] [place], [address] Absolute Neut 4.4 X10 3/uL Normal 2.0-7.7 [facility] Comment on above: Order Comment: Order Date: 06/11/24 Order Info: [id number] - CBCD Performed By: #### L 501.9985, L100.0100 #### [facility] [address] [place], [address] Basophils/100 WBC (Bld) 1.2 % High 0-1 [facility] Comment on above: Order Comment: Order Date: 06/11/24 Order Info: 0184-1 - CBCD Performed By: #### L 501.9985, L100.0100 #### [facility] [address] [place], [address] Eosinophils/100 WBC (Bld) 3.0 % Normal 0-5 [facility] Comment on above: Order Comment: Order Date: 06/11/24 Order Info: 0184-1 - CBCD Performed By: #### L 501.9985, L100.0100 #### [facility] [address] [place], [address] Erythrocyte distribution width (RBC) [Ratio] 13.4 % Normal 11.6-14.6 [facility] Comment on above: Order Comment: Order Date: 06/11/24 Order Info: 0184-1 - CBCD Performed By: #### L 501.9985, L100.0100 #### [facility] [address] [place], [address] Hematocrit (Bld) [Volume fraction] 43.4 % Normal 37-47 [facility] Comment on above: Order Comment: Order Date: 06/11/24 Order Info: 0184-1 - CBCD Performed By: #### L 501.9985, L100.0100 #### [facility] [address] [place], [address] Hemoglobin (Bld) [Mass/Vol] 14.2 g/dL Normal 12.0-15.0 [facility] Comment on above: Order Comment: Order Date: 06/11/24 Order Info: 0184- - CBCD Performed By: #### L 501.9985, L100.0100 #### [facility] [address] [place], [address] IG% 0.300 Normal 0.0-0.9 [facility] Comment on above: Order Comment: Order Date: 06/11/24 Order Info: [id number]- - CBCD Result Comment: IG% - Immature Granulocytes (promyelocytes, myelocytes and metamyelocytes) > 1% indicates that a LEFT SHIFT is Present. Performed By: #### L 501.9985, L100.0100 #### [facility] [address] [place], [address] Lymphocytes/100 WBC (Bld) 21.2 % Normal 19-41 [facility] Comment on above: Order Comment: Order Date: 06/11/24 Order Info: 0184- - CBCD Performed By: #### L 501.9985, L100.0100 #### [facility] [address] [place], [address] MCH (RBC) [Entitic mass] 31.8 pg Normal 27.0-32.0 [facility] Comment on above: Order Comment: Order Date: 06/11/24 Order Info: 0184-1 - CBCD Performed By: #### L 501.9985, L100.0100 #### [facility] [address] [place], [address] MCHC (RBC) [Mass/Vol] 32.7 g/dL Normal 32-36 [facility] Comment on above: Order Comment: Order Date: 06/11/24 Order Info: 0184-1 - CBCD Performed By: #### L 501.9985, L100.0100 #### [facility] [address] [place], [address] MCV (RBC) [Entitic vol] 97.3 fL Normal 81-99 [facility] Comment on above: Order Comment: Order Date: 06/11/24 Order Info: 0184-1 - CBCD Performed By: #### L 501.9985, L100.0100 #### [facility] [address] [place], [address] Monocytes/100 WBC (Bld) 8.0 % Normal 0-10 [facility] Comment on above: Order Comment: Order Date: 06/11/24 Order Info: 0184-1 - CBCD Performed By: #### L 501.9985, L100.0100 #### [facility] [address] [place], [address] Neutrophils/100 WBC (Bld) 66.3 % Normal 47-70 [facility] Comment on above: Order Comment: Order Date: 06/11/24 Order Info: 0184-1 - CBCD Performed By: #### L 501.9985, L100.0100 #### [facility] [address] [place], [address] Nucleated RBC (Bld) [#/Vol] 0 10*3/uL Normal 0-5 [facility] Comment on above: Order Comment: Order Date: 06/11/24 Order Info: 0184-1 - CBCD Performed By: #### L 501.9985, L100.0100 #### [facility] [address] [place], [address] Platelet mean volume (Bld) [Entitic vol] 11.3 fL Normal 6.2-12.0 [facility] Comment on above: Order Comment: Order Date: 06/11/24 Order Info: 0184-1 - CBCD Performed By: #### L 501.9985, L100.0100 #### [facility] [address] [place], [address] Platelets (Bld) [#/Vol] 210 10*3/uL Normal 150-450 [facility] Comment on above: Order Comment: Order Date: 06/11/24 Order Info: 0184-1 - CBCD Performed By: #### L 501.9985, L100.0100 #### [facility] [address] [place], [address] RBC (Bld) [#/Vol] 4.46 10*6/uL Normal 4.2-5.4 [facility] Comment on above: Order Comment: Order Date: 06/11/24 Order Info: [id number] - CBCD Performed By: #### L 501.9985, L100.0100 #### [facility] [address] [place], [address] RDW SD 48.8 fl High 35.1-43.9 [facility] Comment on above: Order Comment: Order Date: 06/11/24 Order Info: 0184-1 - CBCD Performed By: #### L 501.9985, L100.0100 #### [facility] [address] [place], [address] WBC (Bld) [#/Vol] 6.7 10*3/uL Normal 4.4-11.0 [facility] Comment on above: Order Comment: Order Date: 06/11/24 Order Info: [id number] - CBCD Performed By: #### L 501.9985, L100.0100 #### [facility] [address] [place], [address] Comprehensive Metabolic Prof ilon 06-11-2024 Albumin [Mass/Vol] 4.2 g/dL Normal 3.2-5.0 [facility] Comment on above: Order Comment: Order Date: 06/11/24 Order Info: [id number] - CMP Order Info: [id number] - LIPID Performed By: #### L 500.4100, L500.4050 #### [facility] [address] [place], [address] Albumin/Globulin [Mass ratio] 1.2 {ratio} Normal 0.9-2.4 [facility] Comment on above: Order Comment: Order Date: 06/11/24 Order Info: [id number] - CMP Order Info: [id number] - LIPID Performed By: #### L 500.4100, L500.4050 #### [facility] [address] [place], [address] ALK P 57 U/L Normal 45-117 [facility] Comment on above: Order Comment: Order Date: 06/11/24 Order Info: [id number] - CMP Order Info: [id number] - LIPID Performed By: #### L 500.4100, L500.4050 #### [facility] [address] [place], [address] ALT [Catalytic activity/Vol] 55 U/L Normal 13-56 [facility] Comment on above: Order Comment: Order Date: 06/11/24 Order Info: [id number] - CMP Order Info: [id number] - LIPID Performed By: #### L 500.4100, L500.4050 #### [facility] [address] [place], [address] AST [Catalytic activity/Vol] 43 U/L High 15-37 [facility] Comment on above: Order Comment: Order Date: 06/11/24 Order Info: [id number] - CMP Order Info: [id number] - LIPID Performed By: #### L 500.4100, L500.4050 #### [facility] [address] [place], [address] Bilirubin [Mass/Vol] 0.60 mg/dL Normal 0.20-1.00 [facility] Comment on above: Order Comment: Order Date: 06/11/24 Order Info: 785- - CMP Order Info: [id number] - LIPID Result Comment: For patients on eltrombopag therapy, use of Dimension [place] TBIL is not recommended. Performed By: #### L 500.4100, L500.4050 #### [facility] [address] [place], [address] BUN/CRE 21.4 RATIO High 10-20 [facility] Comment on above: Order Comment: Order Date: 06/11/24 Order Info: 07- - CMP Order Info: [id number] - LIPID Performed By: #### L 500.4100, L500.4050 #### [facility] [address] [place], [address] CA,Total 9.9 mg/dL Normal 8.5-10.1 [facility] Comment on above: Order Comment: Order Date: 06/11/24 Order Info: 0786- - CMP Order Info: [id number] - LIPID Performed By: #### L 500.4100, L500.4050 #### [facility] [address] [place], [address] Chloride [Moles/Vol] 107 mmol/L Normal 98-107 [facility] Comment on above: Order Comment: Order Date: 06/11/24 Order Info: [id number] - CMP Order Info: [id number] - LIPID Performed By: #### L 500.4100, L500.4050 #### [facility] [address] [place], [address] CO2 [Moles/Vol] 27.0 mmol/L Normal 21.0-32.0 [facility] Comment on above: Order Comment: Order Date: 06/11/24 Order Info: 0786- - CMP Order Info: [id number] - LIPID Performed By: #### L 500.4100, L500.4050 #### [facility] [address] [place], [address] Creatinine [Mass/Vol] 0.80 mg/dL Normal 0.55-1.02 [facility] Comment on above: Order Comment: Order Date: 06/11/24 Order Info: [id number] - CMP Order Info: [id number] - LIPID Result Comment: The validity of the calculated GFR GFRAA in patients over 70 years has not been determined. Clinical correlation is essential. Performed By: #### L 500.4100, L500.4050 #### [facility] [address] [place], [address] EST GFR - AA 93 mL/min Normal >60 [facility] Comment on above: Order Comment: Order Date: 06/11/24 Order Info: [id number] - CMP Order Info: [id number] - LIPID Result Comment: Afri can [place]ian GFR Calc Performed By: #### L 500.4100, L500.4050 #### [facility] [address] [place], [address] GAP 6 Normal 5-15 [facility] Comment on above: Order Comment: Order Date: 06/11/24 Order Info: 0786- - CMP Order Info: [id number] - LIPID Performed By: #### L 500.4100, L500.4050 #### [facility] [address] [place], [address] GFR/1.73 sq M.predicted among non-blacks MDRD (S/P/Bld) [Vol rate/Area] 77 mL/min/{1.73_m2} Normal >60 [facility] Comment on above: Order Comment: Order Date: 06/11/24 Order Info: [id number] - CMP Order Info: [id number] - LIPID Result Comment: Non- GFR Calc Performed By: #### L 500.4100, L500.4050 #### [facility] [address] [place], [address] Globulin (S) [Mass/Vol] 3.5 g/dL Normal 2.2-4.2 [facility] Comment on above: Order Comment: Order Date: 06/11/24 Order Info: 785- - CMP Order Info: [id number] - LIPID Performed By: #### L 500.4100, L500.4050 #### [facility] [address] [place], [address] Glucose [Mass/Vol] 89 mg/dL Normal 74-106 [facility] Comment on above: Order Comment: Order Date: 06/11/24 Order Info: 07 - CMP Order Info: [id number] - LIPID Performed By: #### L 500.4100, L500.4050 #### [facility] [address] [place], [address] Potassium [Moles/Vol] 4.4 mmol/L Normal 3.5-5.1 [facility] Comment on above: Order Comment: Order Date: 06/11/24 Order Info: 0786- - CMP Order Info: [id number] - LIPID Performed By: #### L 500.4100, L500.4050 #### [facility] [address] [place], [address] Sodium [Moles/Vol] 140 mmol/L Normal 136-145 [facility] Comment on above: Order Comment: Order Date: 06/11/24 Order Info: 0786- - CMP Order Info: [id number] - LIPID Performed By: #### L 500.4100, L500.4050 #### [facility] [address] [place], [address] T PROT 7.7 g/dL Normal 6.4-8.2 [facility] Comment on above: Order Comment: Order Date: 06/11/24 Order Info: [id number] - CMP Order Info: [id number] - LIPID Performed By: #### L 500.4100, L500.4050 #### [facility] [address] [place], [address] Urea nitrogen [Mass/Vol] 17 mg/dL Normal 7-18 [facility] Comment on above: Order Comment: Order Date: 06/11/24 Order Info: [id number] - CMP Order Info: [id number] - LIPID Performed By: #### L 500.4100, L500.4050 #### [facility] [address] [place], [address] Hemoglobin A1con 06-11-2024 HbA1c (Bld) [Mass fraction] 5.4 % Normal 3.8-5.6 [facility] Comment on above: Order Comment: Order Date: 06/11/24 Order Info: [id number] - A1C Result Comment: Norm al < 5.7 % Prediabetic 5.7 - 6.4 % Diabetic >or= 6.5 % Please note range changes. Performed By: #### L 501.9985, L100.0100 #### [facility] [address] [place], [address] Lipid Profileon 06-11-2024 Cholesterol [Mass/Vol] 227 mg/dL High 200 [facility] Comment on above: Order Comment: Order Date: 06/11/24 Order Info: [id number] - CMP Order Info: [id number] - LIPID Result Comment: <200 mg/dL Desirable 200-240 mg/dL Borderline >240 mg/dL High Risk Performed By: #### L 500.4100, L500.4050 #### [facility] [address] [place], [address] Cholesterol in HDL [Mass/Vol] 100 mg/dL Normal [facility] Comment on above: Order Comment: Order Date: 06/11/24 Order Info: [id number] - CMP Order Info: [id number] - LIPID Result Comment: The drugs N-Acetylcysteine and Metamizole may falsely depress this assay. Reference Range HDL <40 mg/dL Low HDL Cholesterol HDL >or= 60 mg/dL High HDL Cholesterol Performed By: #### L 500.4100, L500.4050 #### [facility] [address] [place], [address] Cholesterol in LDL [Mass/Vol] 111 mg/dL Normal 0-130 [facility] Comment on above: Order Comment: Order Date: 06/11/24 Order Info: 0786 - CMP Order Info: [id number] - LIPID Performed By: #### L 500.4100, L500.4050 #### [facility] [address] [place], [address] Cholesterol in VLDL [Mass/Vol] 16 mg/dL Normal 5-40 [facility] Comment on above: Order Comment: Order Date: 06/11/24 Order Info: 0786- - CMP Order Info: [id number] - LIPID Performed By: #### L 500.4100, L500.4050 #### [facility] [address] [place], [address] Triglyceride [Mass/Vol] 79 mg/dL Normal [facility] Comment on above: Order Comment: Order Date: 06/11/24 Order Info: [id number] - CMP Order Info: [id number] - LIPID Result Comment: The drugs N-Acetylcysteine and Metamizole may falsely depress this assay. Serum Triglycerides Reference Interval Normal <150 mg/dL Borderline high 150 - 199 mg/dL High 200 - 499 mg/dL Very High > or = 500 mg/dL Performed By: #### L 500.4100, L500.4050 #### [facility] [address] [place], [address] Basophil percentageOrdered B y: Pina Harris on 12-06-2023 Chloride [Moles/Vol] 109 mmol/L 98-107 [facility] Cholesterol [Mass/Vol] 221 mg/dL <200 [facility] Comment on above: <200 mg/dL Desirable 200-240 mg/dL Borderline >240 mg/dL High Risk Glucose [Mass/Vol] 109 mg/dL 74-106 [facility] Comment on above: Fasting Glucose resu lt from 100 to 125 mg/dL suggests IMPAIRED HOMEOSTASIS per A.D.A. criteria. Potassium [Moles/Vol] 3.9 mmol/L 3.5-5.1 [facility] Sodium [Moles/Vol] 141 mmol/L 136-145 [facility] Triglyceride [Mass/Vol] 63 mg/dL <199 [facility] Comment on above: The drugs N-Acetylcy steine and Metamizole may falsely depress this assay.Serum Triglycerides Reference Interval Normal <150 mg/dL Borderline high 150 - 199 mg/dL High 200 - 499 mg/dL Very High > or = 500 mg/dL Laboratory - Chemistry and C hemistry - challengeOrdered By: Pina Harris on 12-06-2023 Cholesterol in HDL [Mass/Vol] 94 mg/dL >40 [facility] Comment on above: The drugs N-Acetylcy steine and Metamizole may falsely depress this assay. Reference Range HDL <40 mg/dL Low HDL Cholesterol HDL >or= 60 mg/dL High HDL Cholesterol Cholesterol in LDL [Mass/Vol] 114 mg/dL 0-130 [facility] CO2 [Moles/Vol] 28.0 mmol/L 21.0-32.0 [facility] Urea nitrogen/Creatinine [Mass ratio] 16.7 mg/mg 10-20 [facility] No Panel InformationOrdered By: Pina Harris on 12-06-2023 Estimated GFR (MDRD) Amer 87 mL/min >60 [facility] Comment on above: GFR Calc Estimated GFR (MDRD) Non-Af Amer 72 mL/min >60 [facility] Comment on above: Non- GFR Calc VLDL Cholesterol 13 mg/dL 5-40 [facility] Serum or plasma calcium jailene urement (mass/volume)Ordered By: Pina Harris on 12-06-2023 Calcium [Mass/Vol] 9.8 mg/dL 8.5-10.1 [facility] Serum or plasma creatinine m easurement (mass/volume)Ordered By: Pina Harris on 12-06-2023 Creatinine [Mass/Vol] 0.84 mg/dL 0.55-1.02 [facility] Comment on above: The validity of the calculated GFR & GFRAA in patients over 70 years has not been determined. Clinical correlation is essential. Serum or plasma urea nitroge n measurement (mass/volume)Ordered By: Pina Harris on 12-06-2023 Urea nitrogen [Mass/Vol] 14 mg/dL 7-18 [facility] Thin prep Papanicolaou smear with manual screeningOrdered By: Pina Harris on 12-06-2023 Thin prep Papanicolaou smear with manual screening 4 5-15 [facility] Basophil percentageOrdered B y: Yodit Arguello on 05-16-2023 Bilirubin [Mass/Vol] 0.50 mg/dL 0.20-1.00 [facility] Comment on above: For patients on eltr ombopag therapy, use of Dimension [place] TBIL is not recommended. Chloride [Moles/Vol] 106 mmol/L 98-107 [facility] Cholesterol [Mass/Vol] 229 mg/dL <200 [facility] Comment on above: <200 mg/dL Desirable 200-240 mg/dL Borderline >240 mg/dL High Risk Glucose [Mass/Vol] 85 mg/dL 74-106 [facility] Potassium [Moles/Vol] 4.1 mmol/L 3.5-5.1 [facility] Protein [Mass/Vol] 8.0 g/dL 6.4-8.2 [facility] Sodium [Moles/Vol] 139 mmol/L 136-145 [facility] Triglyceride [Mass/Vol] 103 mg/dL <199 [facility] Comment on above: The drugs N-Acetylcy steine and Metamizole may falsely depress this assay.Serum Triglycerides Reference Interval Normal <150 mg/dL Borderline high 150 - 199 mg/dL High 200 - 499 mg/dL Very High > or = 500 mg/dL Laboratory - Chemistry and C hemistry - challengeOrdered By: Yodit Arguello on 05-16-2023 ALP [Catalytic activity/Vol] 63 U/L 45-117 [facility] ALT [Catalytic activity/Vol] 52 U/L -56 [facility] CO2 [Moles/Vol] 25.0 mmol/L 21.0-32.0 [facility] Globulin (S) [Mass/Vol] 3.8 g/dL 2.2-4.2 [facility] Urea nitrogen/Creatinine [Mass ratio] 19.2 mg/mg 10-20 [facility] No Panel InformationOrdered By: Yodit Arguello on 05-16-2023 Estimated GFR (MDRD) Amer 95 mL/min >60 [facility] Comment on above: GFR Calc Estimated GFR (MDRD) Non-Af Amer 79 mL/min >60 [facility] Comment on above: Non- GFR Calc Thyroid Stimulating Hormone (TSH) 2.96 uIU/mL 0.358-3.74 [facility] Serum or plasma albumin jailene urement (mass/volume)Ordered By: Yodit Arguello on 05-16-2023 Albumin [Mass/Vol] 4.2 g/dL 3.2-5.0 [facility] Serum or plasma albumin/glob ulin mass ratioOrdered By: Yodit Arguello on 05-16-2023 Albumin/Globulin [Mass ratio] 1.1 {ratio} 0.9-2.4 [facility] Serum or plasma calcium jailene urement (mass/volume)Ordered By: Yodit Arguello on 05-16-2023 Calcium [Mass/Vol] 8.8 mg/dL 8.5-10.1 [facility] Serum or plasma cholesterol in HDL measurement (mass/volume)Ordered By: Yodit Arguello on 05-16-2023 Cholesterol in HDL [Mass/Vol] 86 mg/dL >40 [facility] Comment on above: The drugs N-Acetylcy steine and Metamizole may falsely depress this assay. Reference Range HDL <40 mg/dL Low HDL Cholesterol HDL >or= 60 mg/dL High HDL Cholesterol Serum or plasma cholesterol in VLDL measurement (mass/volume)Ordered By: Yodit Arguello on 05-16-2023 Cholesterol in VLDL [Mass/Vol] 21 mg/dL 5-40 [facility] Serum or plasma creatinine m easurement (mass/volume)Ordered By: Yodit Arguello on 05-16-2023 Creatinine [Mass/Vol] 0.78 mg/dL 0.55-1.02 [facility] Comment on above: The validity of the calculated GFR & GFRAA in patients over 70 years has not been determined. Clinical correlation is essential. Serum or plasma low density lipoprotein (LDL) cholesterol measurement (mass/volume)Ordered By: Yodit Arguello on 05-16-2023 Cholesterol in LDL [Mass/Vol] 122 mg/dL 0-130 [facility] Serum or plasma urea nitroge n measurement (mass/volume)Ordered By: Yodit Arguello on 05-16-2023 Urea nitrogen [Mass/Vol] 15 mg/dL 7-18 [facility] Thin prep Papanicolaou smear with manual screeningOrdered By: Yodit Arguello on 05-16-2023 Thin prep Papanicolaou smear with manual screening 40 U/L [facility] Thin prep Papanicolaou smear with manual screening 8 5-15 [facility] Basophil percentageOrdered B y: Yodit Arguello on 03-19-2023 Bilirubin [Mass/Vol] 0.50 mg/dL 0.20-1.00 [facility] Comment on above: For patients on eltr ombopag therapy, use of Dimension [place] TBIL is not recommended. Chloride [Moles/Vol] 104 mmol/L 98-107 [facility] Cholesterol [Mass/Vol] 213 mg/dL <200 [facility] Comment on above: <200 mg/dL Desirable 200-240 mg/dL Borderline >240 mg/dL High Risk Glucose [Mass/Vol] 103 mg/dL 74-106 [facility] Comment on above: Fasting Glucose resu lt from 100 to 125 mg/dL suggests IMPAIRED HOMEOSTASIS per A.D.A. criteria. Potassium [Moles/Vol] 4.0 mmol/L 3.5-5.1 [facility] Protein [Mass/Vol] 7.7 g/dL 6.4-8.2 [facility] Sodium [Moles/Vol] 137 mmol/L 136-145 [facility] Triglyceride [Mass/Vol] 77 mg/dL <199 [facility] Comment on above: The drugs N-Acetylcy steine and Metamizole may falsely depress this assay.Serum Triglycerides Reference Interval Normal <150 mg/dL Borderline high 150 - 199 mg/dL High 200 - 499 mg/dL Very High > or = 500 mg/dL Laboratory - Chemistry and C hemistry - challengeOrdered By: Yodit Arguello on 03-19-2023 ALP [Catalytic activity/Vol] 61 U/L 45-117 [facility] ALT [Catalytic activity/Vol] 49 U/L 13-56 [facility] CO2 [Moles/Vol] 27.0 mmol/L 21.0-32.0 [facility] Globulin (S) [Mass/Vol] 3.4 g/dL 2.2-4.2 [facility] Urea nitrogen/Creatinine [Mass ratio] 18.5 mg/mg 10-20 [facility] No Panel InformationOrdered By: Yodit Arguello on 03-19-2023 Estimated GFR (MDRD) Amer 91 mL/min >60 [facility] Comment on above: GFR Calc Estimated GFR (MDRD) Non-Af Amer 75 mL/min >60 [facility] Comment on above: Non- GFR Calc Serum or plasma albumin jailene urement (mass/volume)Ordered By: Yodit Arguello on 03-19-2023 Albumin [Mass/Vol] 4.3 g/dL 3.2-5.0 [facility] Serum or plasma albumin/glob ulin mass ratioOrdered By: Yodit Arguello on 03-19-2023 Albumin/Globulin [Mass ratio] 1.3 {ratio} 0.9-2.4 [facility] Serum or plasma calcium jailene urement (mass/volume)Ordered By: Yodit Arguello on 03-19-2023 Calcium [Mass/Vol] 9.2 mg/dL 8.5-10.1 [facility] Serum or plasma cholesterol in HDL measurement (mass/volume)Ordered By: Yodit Arguello on 03-19-2023 Cholesterol in HDL [Mass/Vol] 88 mg/dL >40 [facility] Comment on above: The drugs N-Acetylcy steine and Metamizole may falsely depress this assay. Reference Range HDL <40 mg/dL Low HDL Cholesterol HDL >or= 60 mg/dL High HDL Cholesterol Serum or plasma cholesterol in VLDL measurement (mass/volume)Ordered By: Yodit Arguello on 03-19-2023 Cholesterol in VLDL [Mass/Vol] 15 mg/dL 5-40 [facility] Serum or plasma creatinine m easurement (mass/volume)Ordered By: Yodit Arguello on 03-19-2023 Creatinine [Mass/Vol] 0.81 mg/dL 0.55-1.02 [facility] Comment on above: The validity of the calculated GFR & GFRAA in patients over 70 years has not been determined. Clinical correlation is essential. Serum or plasma low density lipoprotein (LDL) cholesterol measurement (mass/volume)Ordered By: Yodit Arguello on 03-19-2023 Cholesterol in LDL [Mass/Vol] 110 mg/dL 0-130 [facility] Serum or plasma urea nitroge n measurement (mass/volume)Ordered By: Yodit Arguello on 03-19-2023 Urea nitrogen [Mass/Vol] 15 mg/dL 7-18 [facility] Thin prep Papanicolaou smear with manual screeningOrdered By: Yodit Arguello on 03-19-2023 Thin prep Papanicolaou smear with manual screening 43 U/L 15 [facility] Thin prep Papanicolaou smear with manual screening 6 12-17 [facility] Whole blood hemoglobin A1c/t otal hemoglobin ratio (mass fraction)Ordered By: Yodit Arguello on 03-19-2023 HbA1c (Bld) [Mass fraction] 5.4 % 3.8-5.6 [facility] Comment on above: Normal < 5.7 % Predi abetic 5.7 - 6.4 % Diabetic >or= 6.5 % Please note range changes. NILAY SCREENINGon 10-03-2022 [facility] Absolute lymphocyte counton 04-11-2022 Lymphocytes Auto (Unsp spec) [#/Vol] 1.14 10*3/uL 0.83-4.51 [facility] Work Phone: Basophil percentageon 2021 Basophils/100 WBC (Bld) 0.7 % 0-1 [facility] Work Phone: Bilirubin [Mass/Vol] 0.60 mg/dL 0.20-1.00 [facility] Work Phone: Comment on above: For patients on eltr ombopag therapy, use of Dimension [place] TBIL is not recommended. Chloride [Moles/Vol] 106 mmol/L 98-107 [facility] Work Phone: Cholesterol [Mass/Vol] 213 mg/dL <200 [facility] Work Phone: Comment on above: <200 mg/dL Desirable 200-240 mg/dL Borderline >240 mg/dL High Risk Eosinophils/100 WBC (Bld) 2.8 % 0-5 [facility] Work Phone: Glucose [Mass/Vol] 98 mg/dL 74-106 [facility] Work Phone: [phone] Neutrophils (Bld) [#/Vol] 3.7 10*3/uL 2.0-7.7 [facility] Work Phone: [phone] Neutrophils/100 WBC (Bld) 66.4 % 47-70 [facility] Work Phone: [phone] Potassium [Moles/Vol] 4.4 mmol/L 3.5-5.1 [facility] Work Phone: [phone] Protein [Mass/Vol] 7.5 g/dL 6.4-8.2 [facility] Work Phone: [phone] Sodium [Moles/Vol] 141 mmol/L 136-145 [facility] Work Phone: [phone] Triglyceride [Mass/Vol] 75 mg/dL <199 [facility] Work Phone: Comment on above: The drugs N-Acetylcy steine and Metamizole may falsely depress this assay.Serum Triglycerides Reference Interval Normal <150 mg/dL Borderline high 150 - 199 mg/dL High 200 - 499 mg/dL Very High > or = 500 mg/dL WBC (Bld) [#/Vol] 5.6 10*3/uL 4.4-11.0 [facility] Work Phone: Blood erythrocytes count (nu mber/volume)on 04-11-2022 RBC (Bld) [#/Vol] 4.30 10*6/uL 4.2-5.4 [facility] Work Phone: Blood hemoglobin measurement (mass/volume)on 04-11-2022 Hemoglobin (Bld) [Mass/Vol] 13.6 g/dL 12.0-15.0 [facility] Work Phone: Blood lymphocytes/100 leukoc yteson 04-11-2022 Lymphocytes/100 WBC (Bld) 20.3 % 19-41 [facility] Work Phone: Blood monocytes/100 leukocyt eson 04-11-2022 Monocytes/100 WBC (Bld) 9.6 % 0-10 [facility] Work Phone: Blood platelet mean volumeon 04-11-2022 Platelet mean volume (Bld) [Entitic vol] 12.4 fL 6.2-12.0 [facility] Work Phone: Determination of erythrocyte mean corpuscular volume (MCV)on 04-11-2022 MCV (RBC) [Entitic vol] 97.9 fL 81-99 [facility] Work Phone: Hematocrit Auto (Bld) [Volum e fraction]on 04-11-2022 Hematocrit (Bld) [Volume fraction] 42.1 % 37-47 [facility] Work Phone: Laboratory - Chemistry and C hemistry - challengeon 04-11-2022 ALP [Catalytic activity/Vol] 65 U/L 45-117 [facility] Work Phone: ALT [Catalytic activity/Vol] 37 U/L 13-56 [facility] Work Phone: CO2 [Moles/Vol] 26.0 mmol/L 21.0-32.0 [facility] Work Phone: Globulin (S) [Mass/Vol] 3.2 g/dL 2.2-4.2 [facility] Work Phone: Urea nitrogen/Creatinine [Mass ratio] 19.4 mg/mg 10-20 [facility] Work Phone: Laboratory - Hematology and Cell countson 04-11-2022 Erythrocyte distribution width (RBC) [Entitic vol] 48.1 fL 35.1-43.9 [facility] Work Phone: Erythrocyte distribution width (RBC) [Ratio] 13.4 % 11.6-14.6 [facility] Work Phone: Immature granulocytes/100 WBC (Bld) 0.200 % 0.0-0.9 [facility] Work Phone: Comment on above: IG% - Immature Granu locytes (promyelocytes, myelocytes and metamyelocytes) > 1% indicates that a LEFT SHIFT is Present. MCH (RBC) [Entitic mass] 31.6 pg 27.0-32.0 [facility] Work Phone: Nucleated RBC/100 WBC (Bld) [Ratio] 0 % 0-5 [facility] Work Phone: MCHC Auto (RBC) [Mass/Vol]on 04-11-2022 MCHC (RBC) [Mass/Vol] 32.3 g/dL 32-36 [facility] Work Phone: No Panel Informationon 04-11 Estimated GFR (MDRD) Amer 90 mL/min >60 [facility] Work Phone: Comment on above: GFR Calc Estimated GFR (MDRD) Non-Af Amer 74 mL/min >60 [facility] Work Phone: Comment on above: Non- GFR Calc Platelets bldon 04-11-2022 Platelets (Bld) [#/Vol] 175 10*3/uL 150-450 [facility] Work Phone: Serum or plasma albumin jailene urement (mass/volume)on 04-11-2022 Albumin [Mass/Vol] 4.3 g/dL 3.2-5.0 [facility] Work Phone: Serum or plasma albumin/glob ulin mass ratioon 04-11-2022 Albumin/Globulin [Mass ratio] 1.3 {ratio} 0.9-2.4 [facility] Work Phone: Serum or plasma calcium jailene urement (mass/volume)on 04-11-2022 Calcium [Mass/Vol] 9.7 mg/dL 8.5-10.1 [facility] Work Phone: Serum or plasma cholesterol in HDL measurement (mass/volume)on 04-11-2022 Cholesterol in HDL [Mass/Vol] 80 mg/dL >40 [facility] Work Phone: Comment on above: The drugs N-Acetylcy steine and Metamizole may falsely depress this assay. Reference Range HDL <40 mg/dL Low HDL Cholesterol HDL >or= 60 mg/dL High HDL Cholesterol Serum or plasma cholesterol in VLDL measurement (mass/volume)on 04-11-2022 Cholesterol in VLDL [Mass/Vol] 15 mg/dL 5-40 [facility] Work Phone: Serum or plasma creatinine m easurement (mass/volume)on 04-11-2022 Creatinine [Mass/Vol] 0.83 mg/dL 0.55-1.02 [facility] Work Phone: Comment on above: The validity of the calculated GFR & GFRAA in patients over 70 years has not been determined. Clinical correlation is essential. Serum or plasma low density lipoprotein (LDL) cholesterol measurement (mass/volume)on 04-11-2022 Cholesterol in LDL [Mass/Vol] 118 mg/dL 0-130 [facility] Work Phone: Serum or plasma urea nitroge n measurement (mass/volume)on 04-11-2022 Urea nitrogen [Mass/Vol] 16 mg/dL 7-18 [facility] Work Phone: Thin prep Papanicolaou smear with manual screeningon 04-11-2022 Thin prep Papanicolaou smear with manual screening 35 U/L 15-37 [facility] Work Phone: Thin prep Papanicolaou smear with manual screening 9 5-15 [facility] Work Phone: Whole blood hemoglobin A1c/t otal hemoglobin ratio (mass fraction)on 04-11-2022 HbA1c (Bld) [Mass fraction] 5.6 % 3.8-5.6 [facility] Work Phone: [phone] Comment on above: Normal < 5.7 % Predi abetic 5.7 - 6.4 % Diabetic >or= 6.5 % Please note range changes. Absolute lymphocyte counton 01-04-2022 Lymphocytes Auto (Unsp spec) [#/Vol] 1.31 10*3/uL 0.83-4.51 [facility] Work Phone: [phone] Basophil percentageon 2021 Basophils/100 WBC (Bld) 0.8 % 0-1 [facility] Work Phone: Bilirubin [Mass/Vol] 0.40 mg/dL 0.20-1.00 [facility] Work Phone: Comment on above: For patients on eltr ombopag therapy, use of Dimension [place] TBIL is not recommended. Chloride [Moles/Vol] 104 mmol/L 98-107 [facility] Work Phone: [phone] Eosinophils/100 WBC (Bld) 3.0 % 0-5 [facility] Work Phone: Glucose [Mass/Vol] 105 mg/dL 74-106 [facility] Work Phone: Comment on above: Fasting Glucose resu lt from 100 to 125 mg/dL suggests IMPAIRED HOMEOSTASIS per A.D.A. criteria. Neutrophils (Bld) [#/Vol] 4.1 10*3/uL 2.0-7.7 [facility] Work Phone: [phone] Neutrophils/100 WBC (Bld) 64.1 % 47-70 [facility] Work Phone: [phone] Potassium [Moles/Vol] 4.2 mmol/L 3.5-5.1 [facility] Work Phone: Protein [Mass/Vol] 8.1 g/dL 6.4-8.2 [facility] Work Phone: [phone] Sodium [Moles/Vol] 137 mmol/L 136-145 [facility] Work Phone: WBC (Bld) [#/Vol] 6.4 10*3/uL 4.4-11.0 [facility] Work Phone: Blood erythrocytes count (nu mber/volume)on 01-04-2022 RBC (Bld) [#/Vol] 4.48 10*6/uL 4.2-5.4 [facility] Work [facility]: Blood hemoglobin measurement (mass/volume)on 01-04-2022 Hemoglobin (Bld) [Mass/Vol] 14.2 g/dL 12.0-15.0 [facility] Work Phone: Blood lymphocytes/100 leukoc yteson 01-04-2022 Lymphocytes/100 WBC (Bld) 20.4 % 19-41 [facility] Work Phone: Blood monocytes/100 leukocyt eson 01-04-2022 Monocytes/100 WBC (Bld) 11.5 % 0-10 [facility] Work Phone: Blood platelet mean volumeon 01-04-2022 Platelet mean volume (Bld) [Entitic vol] 11.4 fL 6.2-12.0 [facility] Work Phone: Determination of erythrocyte mean corpuscular volume (MCV)on 01-04-2022 MCV (RBC) [Entitic vol] 97.3 fL 81-99 [facility] Work Phone: Hematocrit Auto (Bld) [Volum e fraction]on 01-04-2022 Hematocrit (Bld) [Volume fraction] 43.6 % 37-47 [facility] Work Phone: Laboratory - Chemistry and C hemistry - challengeon 01-04-2022 ALP [Catalytic activity/Vol] 57 U/L 45-117 [facility] Work Phone: ALT [Catalytic activity/Vol] 42 U/L 13-56 [facility] Work Phone: CO2 [Moles/Vol] 26.0 mmol/L 21.0-32.0 [facility] Work Phone: Globulin (S) [Mass/Vol] 3.8 g/dL 2.2-4.2 [facility] Work Phone: Urea nitrogen/Creatinine [Mass ratio] 22.3 mg/mg 10-20 [facility] Work Phone: Laboratory - Hematology and Cell countson 01-04-2022 Erythrocyte distribution width (RBC) [Entitic vol] 45.5 fL 35.1-43.9 [facility] Work Phone: Erythrocyte distribution width (RBC) [Ratio] 12.7 % 11.6-14.6 [facility] Work Phone: Immature granulocytes/100 WBC (Bld) 0.200 % 0.0-0.9 [facility] Work Phone: Comment on above: IG% - Immature Granu locytes (promyelocytes, myelocytes and metamyelocytes) > 1% indicates that a LEFT SHIFT is Present. MCH (RBC) [Entitic mass] 31.7 pg 27.0-32.0 [facility] Work Phone: Nucleated RBC/100 WBC (Bld) [Ratio] 0 % 0-5 [facility] Work Phone: MCHC Auto (RBC) [Mass/Vol]on 01-04-2022 MCHC (RBC) [Mass/Vol] 32.6 g/dL 32-36 [facility] Work Phone: No Panel Informationon 01-04 Estimated GFR (MDRD) Amer 105 mL/min >60 [facility] Work Phone: Comment on above: GFR Calc Estimated GFR (MDRD) Non-Af Amer 87 mL/min >60 [facility] Work Phone: Comment on above: Non- GFR Calc Platelets bldon 01-04-2022 Platelets (Bld) [#/Vol] 209 10*3/uL 150-450 [facility] Work Phone: Serum or plasma albumin jailene urement (mass/volume)on 01-04-2022 Albumin [Mass/Vol] 4.3 g/dL 3.2-5.0 [facility] Work Phone: Serum or plasma albumin/glob ulin mass ratioon 01-04-2022 Albumin/Globulin [Mass ratio] 1.1 {ratio} 0.9-2.4 [facility] Work Phone: Serum or plasma calcium jailene urement (mass/volume)on 01-04-2022 Calcium [Mass/Vol] 9.3 mg/dL 8.5-10.1 [facility] Work Phone: Serum or plasma creatinine m easurement (mass/volume)on 01-04-2022 Creatinine [Mass/Vol] 0.72 mg/dL 0.55-1.02 [facility] Work Phone: Comment on above: The validity of the calculated GFR & GFRAA in patients over 70 years has not been determined. Clinical correlation is essential. Serum or plasma urea nitroge n measurement (mass/volume)on 01-04-2022 Urea nitrogen [Mass/Vol] 16 mg/dL 7-18 [facility] Work Phone: Thin prep Papanicolaou smear with manual screeningon 01-04-2022 Thin prep Papanicolaou smear with manual screening 31 U/L 15-37 [facility] Work Phone: Thin prep Papanicolaou smear with manual screening 7 5-15 [facility] Work Phone: DXA-AXIAL SKELETONon 022 [facility] Vital Signs Date Time Vital Sign Value Performing Clinician Suyapa peguero 01-16-2024 13:39-0400 Body height 166.4 cm Kaela Clark MD Work Phone: [facility] 01-16-2024 13:39-0400 Body mass index (BMI) [Ratio] 22.52 kg/m2 Kaela Clark MD Work Phone: [facility] 01-16-2024 13:39-0400 Body weight 62.32 kg Kaela Clark MD Work Phone: [facility] 01-16-2024 13:39-0400 Diastolic blood pressure 80 mm[Hg] Kaela Clark MD Work Phone: [facility] 01-16-2024 13:39-0400 Systolic blood pressure 118 mm[Hg] Kaela Clark MD Work Phone: [facility] Encounters Encounter Date Encounter Type Care Provider Facility Start: 03-11-2025 End: 03-11-2025 ambulatory YODIT PEÑA Facility:[facility] Start: 03-11-2025 Encounter for gynecological examination (general) (routine) without abnormal findings KAELA CLARK [facility] Start: 12-16-2024 End: 12-16-[address] Yodit Arguello MD Work Phone: [facility] Work Phone: Start: 12-16-2024 End: 12-16-[address] Yodit Arguello MD -Outpatient Bone Densitometry Work Phone: Start: 12-16-2024 End: 12-16-2024 ambulatory Yodit Arguello Facility:[facility] Start: 10-20-2024 End: 12-21-2024 Follow-up encounter Jaycee Samuel APRN.CNP Work Phone: OB/Gynecology Start: 10-19-2024 End: 10-19-2024 ambulatory YODIT PEÑA Facility:[facility] Start: 10-19-2024 End: 10-19-2024 Subsequent hospital visit by physician Screen Mammo [facility] Mammogram Comment on above: Encounter for screen ing mammogram for malignant neoplasm of breast [Z12.31] Start: 07-18-2024 End: 07-19-2024 Emergency department patient visit Yodit Arguello Facility:[facility] Start: 06-11-2024 End: 06-11-2024 ambulatory Yodit Arguello Facility:[facility] Start: 01-20-2024 Refill Kaela Rea Work Phone: OB/Gynecology Start: 01-16-2024 End: 01-16-2024 Patient encounter procedure Kaela Clark MD Work Phone: OB/Gynecology Comment on above: Encounter for gyneco logical examination (general) (routine) without abnormal findings (Primary Dx); Encounter for screening mammogram for malignant neoplasm of breast; Dense breast tissue on mammogram, unspecified type; Colon cancer screening Start: 01-16-2024 End: 01-16-2024 Patient encounter status Kaela Clark MD Work Phone: [facility] Start: 12-06-2023 End: 12-06-2023 ambulatory [facility] Work Phone: Start: 12-06-2023 End: 12-06-2023 Patient encounter procedure [facility] Work Phone: Start: 10-21-2023 Documentation procedure Mammog mary Coordinator [facility] Start: 10-21-2023 Letter encounter Mammography Coordinator [facility] Department Start: 10-18-2023 End: 10-18-2023 Subsequent hospital visit by physician Screen M[facility] Mammogram Start: 05-16-2023 End: 05-16-2023 ambulatory [facility] Work Phone: Start: 05-16-2023 End: 05-16-2023 Patient encounter procedure [facility] Start: 03-19-2023 End: 03-19-2023 ambulatory [facility] Work Phone: Start: 03-19-2023 End: 03-19-2023 Patient encounter procedure [facility] Start: 10-03-2022 Documentation procedure Mammog mary Coordinator [facility] Start: 10-03-2022 Letter encounter Mammography Coordinator [facility] Start: 10-03-2022 End: 10-03-2022 Subsequent hospital visit by physician Screen Mammo [facility] Mammogram Comment on above: Encounter for screen ing mammogram for breast cancer [Z12.31] Start: 04-11-2022 End: 04-11-[address] Yodit Arguello Work Phone: [facility] Work Phone: Start: 04-11-2022 End: 04-11-[address] Yodit Arguello Work Phone: [facility] Start: 03-13-2022 End: 03-13-[address] Yodit Arguello Work Phone: [facility] Start: 03-07-2022 End: 03-07-[address] Yodit Arguello Work Phone: [facility] Start: 03-06-2022 End: 03-06-[address] Yodit Arguello Work Phone: [facility] Start: 03-06-2022 End: 03-06-[address] Yodit Arguello Work Phone: [facility] Start: 02-19-2022 End: 02-19-[address] Yodit Arguello Work Phone: [facility] Start: 01-04-2022 End: 01-04-2022 Patient encounter procedure [facility] Start: 11-14-2021 End: 11-14-2021 Subsequent hospital visit by physician Bone Density [facility] Work Phone: Radiology Comment on above: Osteopenia, unspecif ied location [M85.80] Procedures Date Procedure Procedure Detail Performing Clinician Start: 12-16-2024 Dual energy X-ray absorptiometry Dr. Yodit Arguello MD Work Phone: Start: 10-19-2024 Screening digital br east tomosynthesis bi Kaela Clark MD Work Phone: Start: 10-03-2022 End: 10-03-2022 Mammography Kaela Clark MD Work Phone: Start: 11-14-2021 Dxa bone density ana dy 1/> sites axial skel Kaela Clark MD Work Phone: Start: 09-18-2021 Mammography [facility] Work Phone: Start: 04-05-2014 Colonoscopy [facility] Work Phone: Start: 10-14-2012 Lipid 1996 panel - S audi or Plasma Screen Wstr Plan of Treatment Date Care Activity Detail Author Start: 2033 RSV Vaccine (1 - 1-d ose 75+ series) RSV Vaccine (1 - 1-dose 75+ series) [facility] Start: 10-19-2025 Screening for malign ant neoplasm of breast Mammogram Screening [facility] Start: 04-05-2025 Influenza vaccination Influenz a Vaccine (Season Ended) [facility] Start: 03-11-2025 End: 03-11-2025 Patient encounter procedure 03/11/2025 1:40 PM EDT Office Visit OB/Gynecology [address] [place] [address] Kaela Clark MD [address] [place] [address] Annual OB/Gynecology Comment on above: Annual Start: 10-19-2024 End: 10-19-2024 Patient encounter procedure 10/19/2024 1:10 PM EDT Appointment Mammogram [address] [place] [id number] Encounter for screening mammogram for malignant neoplasm of breast [Z12.31] Mammogram Comment on above: Encounter for screen ing mammogram for malignant neoplasm of breast [Z12.31] Start: 10-17-2024 Screening for malign ant neoplasm of breast Mammogram Screening [facility] Start: 08-05-2024 Advance Directive Discussion Advance Directive Discussion [facility] Start: 05-12-2024 End: 05-12-2024 Patient encounter procedure 05/12/2024 10:30 AM EDT Appointment Ambulatory Surgery [address] [place] [address] Colon cancer screening [Z12.11] Ambulatory Surgery Comment on above: Colon cancer screeni ng [Z12.11] Start: 04-05-2024 Colonoscopy COLONOSCOPY [facility] Start: 04-05-2024 COLORECTAL CANCER SCREENING COLORECTAL CANCER SCREENING [facility] Start: 04-05-2024 Covid-19 Vaccine ( season) Covid-19 Vaccine ( season) [facility] Start: 04-05-2024 Influenza vaccination C [facility] Start: 04-05-2024 Screening for malign ant neoplasm of colon [facility] Start: 10-04-2023 Mammography [facility] Start: 10-04-2023 Screening for malign ant neoplasm of breast Mammogram Screening [facility] Start: 08-05-2023 Advance Directive Discussion Advance Directive Discussion [facility] Start: 08-05-2023 Behavioral Health Screening Behavioral Health Screening [facility] Start: 08-05-2023 Depression Assessment Depression Ass essment [facility] Start: 04-05-2023 Covid-19 Vaccine () Covid-19 Vaccine () [facility] Start: 04-05-2023 Influenza vaccination Influenza Vacc ine (#1) [facility] Start: 2023 Advance Directive Discussion Advance Directive Discussion [facility] Start: 2023 Pneumococcal Vaccine : 65+ (1 - PCV) Pneumococcal Vaccine: 65+ (1 - PCV) [facility] Start: 2023 Pneumococcal Vaccine : 65+ (1 of 1 - PCV) Pneumococcal Vaccine: 65+ (1 of 1 - PCV) [facility] Start: 09-18-2022 Mammography MAMMOGRAM [facility] Start: 09-03-2022 HPV TESTING HPV TESTING [facility] Start: 09-03-2022 PAP TESTING PAP TESTING [facility] Start: 08-05-2022 DEPRESSION ASSESSMENT DEPRESSION ASS ESSMENT [facility] Start: 04-05-2022 Influenza vaccination C [facility] Start: 05-17-2021 COVID-19 VACCINE (3 - Booster for Moderna series) COVID-19 VACCINE (3 - Booster for Moderna series) [facility] Start: 02-09-2021 COVID-19 VACCINE (3 - Booster for Moderna series) COVID-19 VACCINE (3 - Booster for Moderna series) [facility] Start: 2018 RSV Vaccine (1 - 1-d ose 60+ series) RSV Vaccine (1 - 1-dose 60+ series) [facility] Start: 10-14-2017 Lipid 1996 panel - S audi or Plasma Lipid Screening [facility] Start: 10-14-2017 Lipid panel Lipid Screening [facility] Start: 10-14-2017 LIPID SCREEN LIPID SCREEN [facility] Start: 10-15-2015 DIABETES SCREEN DIABETES SCREEN [facility] Start: 10-15-2015 Diabetes Screening Diabetes Screenin g [facility] Start: 02-24-2008 Pneumococcal Vaccine : 50+ (1 of 1 - PCV) Pneumococcal Vaccine: 50+ (1 of 1 - PCV) [facility] Start: 02-24-2008 SHINGRIX VACCINE (1 of 2) SHINGRIX VACCINE (1 of 2) [facility] Start: 2003 COLOGUARD (FIT-DNA) COLOGUARD (FIT-D NA) [facility] Start: [address] COLONOGRAPHY [facility] Start: 2003 FECAL OCCULT BLOOD FECAL OCCULT BLOO D [facility] Start: 2003 Screening for malign ant neoplasm of colon [facility] Start: 2003 SIGMOIDOSCOPY SIGMOIDOSCOPY [facility] Start: 1977 Urine microalbumin profile [facility] Start: 02-24-1976 Anxiety Screening Anxiety Screening [facility] Start: 02-24-1976 Depression Screening Depression Scre ening [facility] Start: 02-24-1976 HEPATITIS C SCREENING HEPATITIS C [facility] Start: 02-24-1976 Hepatitis C screening Hepatitis C [facility] Start: 02-24-1976 HIV SCREENING HIV SCREENING [facility] Start: 02-24-1976 HIV screening HIV Screening [facility] Start: 1970 Adult depression screening assessment DEPRESSION SCREENING [facility] End: 02-14-2025 DBT Breast - bilateral screening NILAY SCREENING [facility] Routine Encounter for screening mammogram for malignant neoplasm of breast Dense breast tissue on mammogram, unspecified type 1 Occurrences starting 01/16/2024 until 02/14/2025 [facility] Work Phone: Comment on above: 1 Occurrences starti ng 01/16/2024 until 02/14/2025 End: 10-18-2023 MG Breast Screening [facility] Work Phone: Comment on above: ONCE for 1 Occurrenc es starting 10/18/2023 until 10/18/2023 End: 01-16-2025 Screening colonoscopy COLONOSCOPY SCREENING Endoscopy Routine Colon cancer screening 1 Occurrences starting 01/17/2024 until 01/16/2025 [facility] Comment on above: 1 Occurrences starti ng 01/17/2024 until 01/16/2025 [facility] Immun[facility] Immunization Date Immunization Notes Care Provider Fa cility 06-07-2020 influenza virus vacc ine, unspecified formulation Screen Wstr [facility] Payers Date Payer Category Payer Self-pay [id number] 2023 Medicare UHC MEDICARE UHC MEDICARE ADVANTAGE PPO [id number] 2023-Present [phone] [address] [address] [place] [address] PPO [id number] 2023 Medicare (Managed Care) [facility] MEDI CARE ADVANTAGE PPO [id number] 2023 Unknown [id number] 2018 Unknown TOAN MARTINEZ SS PPO [id number] 2018-Present [phone] [address] [place] [address] PPO [id number] 2018 Unknown TOAN MULLINS PPO [id number] 2018-Present [phone] [address] [place] [address] PPO [id number] 2014 Unknown [id number] Unknown [id number] Unknown [id number] Unknown [id number] Social History Date Type Detail Facility Start: 09-03-2017 End: 01-16-2024 Tobacco smoking status NHIS Ex-smoker [facility] Start: 10-20-2021 End: 01-16-2024 Alcohol intake Current drinker of alcohol (finding) [facility] Start: 1960 Sex Assigned At Not on file [facility] Start: 1960 Sex Assigned At Female W [facility] Start: 03-06-2022 Tobacco smoking stat us [facility] Unknown if ever smoked [facility] History of tobacco use Current smoker [facility] History of tobacco use Cigarette Smoker C [facility] Start: 09-03-2017 End: 01-16-2024 Tobacco use and exposure Smokeless tobacco non-user [facility] Start: 10-20-2021 End: 12-20-2022 History of Social function [facility] Start: 10-20-2021 End: 12-20-2022 Tobacco use panel [facility] National Score (1-100), lower number is lower risk Not on file [facility] Start: 12-20-2022 Alcohol Comment daily [facility] Start: 01-16-2024 Tobacco Comment Quit 19 yrs ag o (today is 03/14/2009) [facility] Functional Status Date Assessment Result Facility 01-05-2015 Are you deaf, or do you have serious difficulty hearing No 01/05/2015 10:29 AM Marlen Urena RN No [facility] 01-05-2015 Are you blind, or do you have serious difficulty seeing, even when wearing glasses No 01/05/2015 10:29 AM Marlen Urena, DARLENE No [facility] 01-05-2015 Do you have serious difficulty walking or climbing stairs No 01/05/2015 10:29 AM Marlen Urena RN No [facility] 01-05-2015 Do you have difficul ty dressing or bathing No 01/05/2015 10:29 AM Marlen Urena RN No [facility] 01-05-2015 Because of a physica l, mental, or emotional condition, do you have difficulty doing errands alone such as visiting a physician's office or shopping No 01/05/2015 10:29 AM Marlen Urena RN No [facility] Mental Status Date Assessment Result Facility 01-05-2015 Because of a physica l, mental, or emotional condition, do you have serious difficulty concentrating, remembering, or making decisions No 01/05/2015 10:29 AM Marlen Urena RN No [facility] Clinical Notes 01-13-2016 to 03-11-2025 Alyssia Solis Mammo Tech - 10/19/2024 1:10 PM EDTTelephone Encounter - Kaela Clark MD - 01/20/2024 4:06 PM EDTTelephone Encounter - Kaela Clark MD - 01/20/2024 4:06 PM EDT Note Date & Type Note Facility 03-11-2025 Note HNO ID: [id number] Author: KAELA CLARK MD Service: ? Author Type: Physician Type: Progress Notes Filed: 03/11/2025 17:45 Note Text: Glassblower offered: Patient declines. Emmanuelle is a 65 year old who presents for an annual gynecologic exam without complaints. Postmenopausal: Yes since age 49 HRT use: No. Age at Menarche: 10 Still get period: No Menses: no menses - postmenopausal Menstrual flow: N/A Bleeding amount bothersome: N/A Bleeding between periods: N/A Period symptoms: None Sexually active: No Contraception: Vasectomy Contraception frequency: Never HPV vaccine: No Last pap smear: 12/20/2022 History of abnormal pap: No Colposcopy: No. Leep: No. Cone biopsy: No. Bothersome pelvic pain: No Last mammogram: 2024 normal History of abnormal mammogram: Yes FNA, 2010 OB History Gravida2 Para2 Term2 Preterm0 AB0 Living2 SAB0 IAB0 Ectopic0 Multiple0 Live Births0 [employer] History LMP: 04/20/2009, Postmenopausal Age at Menarche: Age at First : Age at Menopause: [employer] History Comments: Sexual Activity: Not Currently; Male Contraception: Vasectomy PAST MEDICAL HISTORY Diagnosis Date Depression History of, no longer on medication Fibrocystic breast Glaucoma Hypercholesterolemia Osteopenia PAST SURGICAL HISTORY Procedure Laterality Date ANES NOSE AND ACCESSORY SINUSES RADICAL SURGERY BIOPSY BREAST OPEN INCISIONAL Bx of breast, incisional x3 BX BREAST PERC NEED W/GUID 04/18/2011 U/S Needle core bx LOQ left breast solid CYST/MOLE REMOVAL 08/2020 from chest EYE SURGERY HX Bilateral multiple laser treatments FNA WITH IMAGING 01/20/2010 U/S FNA left breast cysts x 2 PAST SURGICAL HISTORY OF 01/04/2016 excision ganglion of hand RPR 1ST INGUN HRNA AGE 3 YRS/> REDUCIBLE Hernia repair, inguinal US BIOPSY BREAST L 01/29/2006 US BRST CYST ASP PUNC LT 03/15/2009 U/S FNA left breast cysts x 2 FAMILY HISTORY Problem Relation Age of Onset Heart Mother CARDIOMYOPATHY Breast Cancer Mother 60 Stroke Mother Cancer Mother lung Cancer Father LUNG/prostate Stroke Father other (hip fracture) Father No Known Problems Son Diabetes Son JUVENILE SOCIAL HISTORY Social History Tobacco Use Smoking status: Former Types: Cigarettes Smokeless tobacco: Never Tobacco comments: Quit 19 yrs ago (today is 03/14/2009) Vaping Use Vaping status: Never Used Substance Use Topics Alcohol use: Yes Comment: moderate Drug use: No REVIEW OF SYSTEMS Abdomen: No abdominal pain, nausea, vomiting, diarrhea, or constipation. Bladder: No dysuria, gross hematuria, urinary frequency, urinary urgency, or incontinence Breast: No breast lumps, nipple d/c, overlying skin changes, redness or skin retraction Allergies and current medication updated:Yes SENSITIVE EXAM: The sensitive examination was discussed with the Patient or Patient's Authorized Electric Motor Analyst. As applicable, any other physician, advance practice provider, medical student, or other health professional student that will be observing or involved in the sensitive examination for educational or training purposes was discussed with the Patient or Authorized Electric Motor Analyst. The Patient or Authorized Electric Motor Analyst has agreed to proceed with the sensitive examination. (Sensitive examination includes inspection and/or palpation of the breasts, pelvis, prostate and anorectal regions). EXAM: BP 110/74 Ht 5' 5.5 (1.66m) Wt 141 lb 3.2 oz (64.0kg) LMP 04/20/2009 BMI 23.13 kg/(m2). GENERAL: pleasant, female in no apparent distress HEENT: Normocephalic and atraumatic NECK: full range of motion BREAST: soft, non-tender, symmetric, no dominant mass, normal nipple-areolar complex, no lymphadenopathy, and no nipple discharge CHEST: Normal inspiratory effort ABDOMEN: soft, non-tender, and no masses PELVIC: external genitalia normal, normal Bartholin's glands, urethra, Levelock's glands, no vulvar lesions, no cervical lesions, good vaginal support, physiologic discharge present, normal appearing perineal body and perianal region BIMANUAL: uterus normal size, shape and consistency, no adnexal masses, and non-tender RECTOVAGINAL: deferred. NEURO: exam grossly non-focal EXTREMITIES: normal ASSESSMENT/PLAN: 1) Health maintenance: Pap/HPV up to date. Mammogram up to date Nutrition, exercise and routine health maintenance exams reviewed. Calcium/Vitamin D supplementation information provided. Colon cancer screening: up to date with screening TSH/lipids/glucose: followed by PCP 2) Follow up one year or sooner as needed Kaela Clark DO [facility] 10-19-2024 History of Presen t illness Narrative Radiology Service Progress Note PATIENT NAME: Connie Levi DATE OF SERVICE: October 19, 2024 TIME: 1:23 PM PATIENT IDENTITY VERIFICATION COMPLETED USING TWO (2) IDENTIFIERS: Name and Date of confirmed by patient verbally. FALL SCREENING: Has the patient had 2 falls in the last year or 1 fall with injury or currently using an Ambulatory Assistive Device (Walker, Cane, Wheelchair, Crutches, etc.)? No PATIENT GENDER DATA: Assigned female at . status: : No status: NO. PATIENT RELEVANT IMPLANT DATA REVIEWED: Not Applicable PATIENT PRESENTS WITH AN IMPLANTABLE OR ATTACHED RACING MANAGER: No RADIOLOGY DEPARTMENT: Mammography PERIPHERAL IV DATA: Not applicable SIGNED BY: Presley Mercedes October 19, 2024 1:23 PM documented in this encounter [facility] 10-19-2024 Note HNO ID: [id number] Author: ALYSSIA SOLIS Mammo Tech Service: ? Author Type: Thermoforming Machine Operator Type: Progress Notes Filed: 10/19/2024 13:23 Note Text: Radiology Service Progress Note PATIENT NAME: Connie Levi DATE OF SERVICE: October 19, 2024 TIME: 1:23 PM PATIENT IDENTITY VERIFICATION COMPLETED USING TWO (2) IDENTIFIERS: Name and Date of confirmed by patient verbally. FALL SCREENING: Has the patient had 2 falls in the last year or 1 fall with injury or currently using an Ambulatory Assistive Device (Walker, Cane, Wheelchair, Crutches, etc.)? No PATIENT GENDER DATA: Assigned female at . status: : No status: NO. PATIENT RELEVANT IMPLANT DATA REVIEWED: Not Applicable PATIENT PRESENTS WITH AN IMPLANTABLE OR ATTACHED RACING MANAGER: No RADIOLOGY DEPARTMENT: Mammography PERIPHERAL IV DATA: Not applicable SIGNED BY: Presley Mercedes October 19, 2024 1:23 PM [facility] 01-20-2024 Telephone encounter Note filed [facility] 01-20-2024 Miscellaneous Notes filed Patient would like to have her Golytely Bowel prep script sent to [facility] [address] [place] [address] [place] [address] Patient is scheduled for her colonoscopy 05-12-2024 Erin Malin documented in this encounter [facility] 01-20-2024 Instructions Rossi Chambers RN - 01/20/2024 3:07 PM EDT Health Information For Patients and the Community How to Prepare for Your Colonoscopy Using Golytely, Nulytely, Trilyte or Colyte Preparations IMPORTANT - Please Read These Instructions at Least 2 Weeks Before Your Colonoscopy [place] Instructions: ?Your bowel must be empty so that your doctor can clearly view your colon. Follow all of the instructions in this handout EXACTLY as they are written. If you do NOT follow the directions for when to start drinking the bowel preparation (see next page), your colonoscopy WILL be cancelled. ?Do NOT eat any solid food the ENTIRE day before your colonoscopy. ?Buy your bowel preparation at least 5 days before your colonoscopy. ?Do NOT mix the solution until the day before your colonoscopy. Designated Hvac Sales Engineer on the Day of Your Exam A responsible family member or friend MUST come with you to your colonoscopy and REMAIN in the endoscopy area until you are discharged! You are NOT ALLOWED to drive, take a taxi or bus, or leave the Endoscopy Center ALONE. If you do not have a responsible driver license technician (family member or friend) with you to take you home, your exam cannot be done with sedation and will be cancelled. Medications Some of the medicines you take may need to be stopped or adjusted before your colonoscopy. You MUST call the doctor who ordered any of the following medicines at least 2 weeks before your colonoscopy. ?Blood thinners -- such as Coumadin (warfarin), Plavix (clopidogrel), Ticlid (ticlopidine hydrochloride), Agrylin (anagrelide), Xarelto (Rivaroxaban), Pradaxa (Dabigatran), Eliquis (Apixaban), and Effient (Prasugrel). ?Insulin or diabetes pills. Please call the doctor that monitors your glucose levels. Your insulin dosage may need to be adjusted due to the diet restrictions required with this bowel preparation. (Please bring your diabetes medicines with you on the day of your procedure.) If you take aspirin, take it and ALL other medications prescribed by your doctor. On the day of your colonoscopy, take your medications with a sip of water. Revised 09/2016 1 Five (5) Days Before Your Colonoscopy ?Do NOT take medicines that stop diarrhea -- such as Imodium , Kaopectate , or Pepto Bismol . ?Do NOT take fiber supplements -- such as Metamucil , Citrucel , or Perdiem . ?Do NOT take products that contain iron -- such as multi-vitamins -- (the label lists what is in the products). ?Do NOT take vitamin E. Buy the prescription bowel preparation solution at your local pharmacy or drugstore pharmacy. Three (3) Days Before Your Colonoscopy Do NOT eat high-fiber foods -- such as popcorn, beans, seeds (flax, sunflower, quinoa), multigrain bread, nuts, salad/vegetables, or fresh and dried fruit. One (1) Day Before Your Colonoscopy Only drink clear liquids the ENTIRE DAY before your colonoscopy. Do NOT eat any solid foods. Drink at least 8 ounces of clear liquids every hour after waking up. The clear liquids you can drink include: ?water, apple, or white grape juice; broth; coffee or tea (without milk or creamer); clear carbonated beverages such as arik jeison or lemon-skagway soda; Gatorade or other sports drinks (not red); Jude-Aid or other flavored drinks (not red). You may eat plain jello or other gelatins (not red) or popsicles (not red). Do NOT drink alcohol on the day before or the day of the procedure. 2 Revised 09/2016 When to Mix and Drink Your Bowel Prep Follow the instructions on the label. After mixing, place the solution in the refrigerator for a couple of hours before drinking. You may add the flavor packet that came with the bowel preparation. DO NOT add ice, sugar or any flavorings to the solution. Evening Before Your Colonoscopy ?Start drinking the bowel preparation at 6 PM the evening before your colonoscopy. Drink an 8-oz glass of bowel preparation every 10 minutes. You must finish drinking the solution by 9 PM the night before your scheduled procedure. ?You may continue to drink clear liquids only until midnight. Do NOT eat or drink ANYTHING after midnight the night before your procedure or your procedure may be cancelled. This is for your safety and will reduce the risk of having any food or liquid in your stomach move into your lungs (aspiration) during a procedure. If you take aspirin, take it and ALL other prescribed medicines with a sip of water on the day of your colonoscopy. Contact Information: If you are unable to keep your appointment or have any questions about the instructions, please call the facility where the procedure is being performed. Call between the hours of 8:00 AM and 5:00 PM. If you are calling after 5:00 PM, please call Nurse percussion instructor at [phone]. [facility] [address] [place] [id number] Index # [id number] Revised 09/2016 3 Colonoscopy Procedure Overview Please Read Prior to the Procedure What is a Colonoscopy A colonoscopy is an outpatient procedure in which the inside of the large intestine (colon and rectum) is examined. A colonoscopy is commonly used to evaluate gastrointestinal symptoms, such as rectal and intestinal bleeding, abdominal pain, or changes in bowel habits. Colonoscopies are also performed in individuals without symptoms to check for colorectal polyps or cancer. A screening colonoscopy is recommended for anyone 50 years of age and older, and for anyone with parents, siblings or children with a history of colorectal cancer or polyps. What Happens Before a Colonoscopy To have a successful colonoscopy, your bowel must be empty so that your physician can clearly view the colon. To do this, it is very important to read and follow all of the instructions given to you at least 2 weeks BEFORE your exam. If your bowel is not empty, your colonoscopy will not be successful and may have to be repeated. If you feel nauseated or vomit while taking the bowel preparation, wait 30 minutes before drinking more fluid and start with small sips of solution. Some activity (such as walking) or a few soda crackers may help decrease the nausea you are feeling. If the nausea persists, please contact nurse cement mason maintenance at [phone]. You may experience skin irritation around the anus due to the passage of liquid stools. To prevent and treat skin irritation, you should: ?Apply Vaseline or Desitin ointment to the skin around the anus before drinking the bowel preparation medications. These products can be purchased at any drugstore. ?Wipe the skin after each bowel movement with disposable wet wipes instead of toilet paper. These are found in the toilet paper area of the store. ?Sit in a bathtub filled with warm water for 10 to 15 minutes after you finish passing a stool; after soaking, blot the skin dry with a soft cloth, apply Vaseline or Desitin ointment to the anal area, and place a cotton ball just outside your anus to absorb leaking fluid. What Happens During a Colonoscopy During a colonoscopy, an experienced physician uses a colonoscope (a long, flexible instrument about 1/2 inch in diameter) to view the lining of the colon. The colonoscope is inserted into the rectum and advanced through the large intestine. If necessary during a colonoscopy, small amounts of tissue can be removed for analysis (a biopsy) and polyps can be identified and entirely removed. In many cases, a colonoscopy allows accurate diagnosis and treatment of colorectal problems without the need for a major operation. Revised 09/2016 5 ?You are asked to wear a hospital gown and an IV will be started. ?You are given a pain reliever and a sedative intravenously (in your vein). You will feel relaxed and somewhat drowsy. ?You will lie on your left side, with your knees drawn up towards your chest. ?A small amount of air is used to expand the colon so the physician can see the colon arndt. ?You may feel mild cramping during the procedure. Cramping can be reduced by taking slow, deep breaths. ?The colonoscope is slowly withdrawn while the lining of your bowel is carefully examined. ?The procedure lasts from 30 minutes to 1 hour. What Happens After a Colonoscopy ?You will stay in a recovery room for observation until you are ready for discharge. ?You may feel some cramping or a sensation of having gas, but this quickly passes. ?If sedation has been given, a responsible family member or friend must drive you home. ?Avoid alcohol, driving, and operating machinery for 24 hours following the procedure. ?Unless otherwise instructed, you may immediately return to your normal diet. We recommend you wait until the day after your procedure to resume normal activities. ?If polyps were removed or a biopsy was taken, the physician performing your colonoscopy will tell you when it is safe to resume taking your blood thinners. ?If a biopsy was taken or a polyp was removed, you may notice a little amount of rectal bleeding for 1 to 2 days after the procedure. If you have a large amount of rectal bleeding, high or persistent fevers, or severe abdominal pain within the next 2 weeks, please go to your local emergency room and call the physician who performed your exam. 6 Revised 09/2016 Copyright [id number] [facility]. All rights reserved. Revised 09/2016 documented in this encounter [facility] 01-20-2024 Telephone encounter Note Patient would like to have her Jive Bikely Bowel prep script sent to [facility] [address] [place] [address] [place] [address] Patient is scheduled for her colonoscopy 05-12-2024 Erin Malin [facility] Work Phone: 01-17-2024 Instructions Kaela Clark MD - 01/17/2024 2:20 PM EDT Images from the original note were not included. Calcium and Vitamin D Supplementation (from the National Institutes of Health Office of Dietary Supplements 2011) Calcium is required by the body for blood vessel, muscle, hormone and nerve functioning. Most of the body's calcium is stored in the bones and teeth where it supports structure and function. Bone is continuously broken down and reformed. When bone breakdown exceeds formation, especially in postmenopausal women, bone loss can increase the risk of osteoporosis and fractures. In addition to low calcium intake, women who smoke, have a family history of osteoporosis, are thin, or , or who take certain medications such as cancer chemotherapy, seizure mediations and steroids are at increased risk of osteoporosis. The calcium requirements in women change with age. The National Institutes of Health (NIH) recommends: 1000mg elemental calcium for premenopausal women age 19-50 1200mg elemental calcium for postmenopausal women and all women over 50 Milk, yogurt, and cheese are rich natural sources of calcium and are the major food contributors in the [place]. For example, 8oz of milk (whole, lowfat or skim) contains about 300mg calcium, 8oz of yogurt contains 415mg. Nondairy sources include salmon and sardines and vegetables, such as Haitian cabbage, kale, and broccoli. Foods fortified with calcium include many fruit juices, tofu and cereals. For more food calcium content information, visit http://ods.od.nih.gov/factsheets /calcium. Calcium supplements come in several different forms. Remember that the recommendations are for millgrams (mg) of elemental calcium which may be less than the total weight of the supplement. The amount of elemental calcium is required to be printed on the label. Calcium carbonate is the least expensive form. It must be taken on a full stomach to be properly absorbed. Some patients may experience gas or constipation. Calcium phosphate and calcium citrate may be taken either with or without food and tend to have less side effects but are generally more expensive. Because of its ability to neutralize stomach acid, calcium carbonate is found in some yzvn-yej-wkmjrrm antacid products, such as Tums and Rolaids . Depending on its strength, each chewable pill or softchew provides 200 to 400 mg of elemental calcium. The percentage of calcium absorbed depends on the total amount of elemental calcium consumed at one time. Absorption is highest in doses <500mg. So a woman who takes 1,000mg/day of calcium from supplements should split the dose and take 500mg at two separate times during the day. Too much calcium can cause kidney stones, constipation, difficulty absorbing other nutrients and calcium buildup in blood vessels. Women under 50 should not exceed 2500mg/day (2000mg/day for women over 50) of calcium from food and supplements. Excessive alcohol and caffeine intake can inhibit absorption of calcium. Calcium can reduce the absorption of some medications if taken at the same time of day (bisphosphonates, thyroid medication, Phenytoin and other seizure medications, some antibiotics and iron supplements). Vitamin D promotes calcium absorption in the gut and maintains adequate blood levels of calcium and phosphate for normal bone growth and bone remodeling. Vitamin D also helps regulate cell growth as well as nerve, muscle and immune system function. Vitamin D is produced in the skin as a result of ultraviolet sunlight rays and must be altered in the liver and kidney to become its active form. Recommended intake according to the National Institutes of Health is 600 International Units (IU) for girls and women ages 1-70 and 800 IU for women over 70. Very few foods in nature contain vitamin D. The flesh of fatty fish (such as salmon, tuna, and mackerel) and fish liver oils are among the best sources. Small amounts of vitamin D are found in beef liver, cheese, mushrooms and egg yolks. Most people meet at least some of their vitamin D needs through exposure to sunlight. Season, time of day, length of day, cloud cover, smog, skin melanin content, and sunscreen are among the factors that affect UV radiation exposure and vitamin D synthesis. Despite the importance of the sun for vitamin D synthesis, it is prudent to limit exposure of skin to sunlight and avoid tanning beds. UV radiation is a carcinogen responsible for most of the estimated 1.5 million skin cancers that occur annually in the [place]. Lifetime cumulative UV damage to skin is also responsible for some age-associated dryness and other cosmetic changes. In supplements and fortified foods, vitamin D is available in two forms, D2 (ergocalciferol) and D3 (cholecalciferol). The two are equivalent at normal supplement doses. For women who require high supplement doses because of vitamin D deficiency, D3 may work better to raise blood levels. Some medications can prevent proper absorption of Vitamin D. These include laxatives, corticosteroids like prednisone, the seizure drugs phenobarbital and phenytoin, the weight-loss drug orlistat ( Xenical and AlliTM) and the cholesterol-lowering drug cholestyramine (Questran , LoCholest , and Prevalite ). Talk to your doctor about adjusting your recommended daily vitamin D dosage if you take these medications. You should not exceed 4000 mg of vitamin D supplementation daily unless specifically prescribed by your doctor. Bowel Preparation Instructions for: Miralax-Gatorade Preparations IF YOU DO NOT FOLLOW THESE DIRECTIONS, YOUR COLONOSCOPY WILL BE CANCELLED. Cruz Instructions: Your bowel must be empty so that your doctor can clearly view your colon. Follow all of the instructions in this handout EXACTLY as they are written. Do NOT eat any solid food the ENTIRE day before your colonoscopy. Buy your bowel preparation at least 5 days before your colonoscopy. Four (4) Dulcolax laxative tablets containing 5mg of bisacodyl each (NOT Dulcolax stool softener) One (1) 8.3oz. bottle Miralax (238 grams) or generic equivalent 2 x 32oz. Bottles of Gatorade (NOT RED) Diabetic Patients: Use G2 (Gatorade 2) TRANSPORTATION on the Day of Your Exam A responsible adult MUST be present with you at Check In prior to your colonoscopy and REMAIN in the endoscopy area until you are discharged. You are NOT ALLOWED to drive, take a taxi or bus, or leave the Endoscopy Center ALONE. If you do not have a responsible driver license technician (family member or friend) with you to take you home, your exam cannot be done with sedation and will be cancelled. Please bring a list of all of your current medications, including any Jguz-ehk-Bdhzkko medications with you. Medications If you take insulin, diabetic medications or blood thinners such as Coumadin (warfarin), Plavix (clopidogrel), Ticlid (ticlopidine hydrochloride), Agrylin (anagrelide), Xarelto (Rivaroxaban), Pradaxa (Dabigatran), Eliquis (Apixaban), and Effient (Prasugrel). You MUST call the doctors who orders those medicines for instructions on altering the dosage before your colonoscopy. All other medications should be taken the day of the exam with a sip of water including ASPIRIN. Five (5) Days Before Your Colonoscopy Do NOT take medicines that stop diarrhea - such as Imodium, Kaopectate, or Pepto Bismol. Do NOT take fiber supplements - such as Metamucil, Citrucel, or Perdiem. Do NOT take products that contain iron - such as multi-vitamins (the label lists what is in the products). Three (3) Days Before Your Colonoscopy Do NOT eat high-fiber foods - such as popcorn, beans, seeds (flax, sunflower, quinoa), multigrain bread, nuts, salad/vegetables, or fresh and dried fruit. 1 Bowel Preparation Instructions for: Miralax-Gatorade Preparations One (1) Day Before Your Colonoscopy Only drink clear liquids the ENTIRE DAY before your colonoscopy. Do NOT eat any solid foods. Drink at least 8 ounces of clear liquids every hour after waking up. The clear liquids you can drink include: Clear Liquid (NO RED LIQUIDS) DO NOT DRINK Gatorade, Pedialyte or Powerade Clear broth or bouillon Coffee or tea (no milk or non-dairy creamer) Carbonated and non-carbonated soft drinks Jude-Aid or other fruit flavored drinks Strained fruit juices (no pulp) Jell-O, popsicles, hard candy Water Alcohol Milk or non-dairy creamers Noodles or vegetables in soup Juice with pulp Liquid you cannot see through Do not use tobacco/vaping products Mix 1/2 of Miralax bottle (119 grams) in each 32 ounces of Gatorade bottle until dissolved. Keep cool in the refrigerator. DO NOT ADD ICE. The bowel preparation solution will be consumed in two parts. Part 1 5:00 PM - Evening before your colonoscopy Take 4 Dulcolax tablets. 6 PM - Evening before your colonoscopy Drink 32 oz. of the mixed solution. Drink an 8 oz. glass of bowel preparation every 15 minutes for a total of 4 glasses. Fifteen (15) minutes later, drink an 8 oz. glass of of clear liquids every 15 minutes for a total of 2 glasses. You may continue to drink clear liquids till midnight. Part 2 On the day of your colonoscopy you may drink clear liquids up to (three) 3 hours prior to procedure. 4 1/2 hours before your colonoscopy Take another 32 oz. bottle of mixed solution. Drink an 8 oz. glass of bowel prep every 15 minutes for a total of 4 glasses. Fifteen (15) minutes later, drink an 8 oz. glass of clear liquids every 15 minutes for a total of 2 glasses. You may continue to drink clear liquids up to (three) 3 hours before your exam. 2 07/2019 documented in this encounter [facility] 01-16-2024 History of Presen t illness Narrative Glassblower offered: Patient declines. Emmanuelle is a 63 year old who presents for an annual gynecologic exam without complaints. Postmenopausal: Yes HRT use: No. 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 LMP: 04/20/2009, Postmenopausal Age at Menarche: Age at First : Age at Menopause: [employer]visor [employer] History Comments: Sexual Activity: Not Currently; Male; VASECTOMY Contraception: Surgical PAST MEDICAL HISTORY Diagnosis Date Depression History of, no longer on medication Fibrocystic breast Glaucoma Hypercholesterolemia Osteopenia PAST SURGICAL HISTORY Procedure Laterality Date ANES NOSE & ACCESSORY SINUSES RADICAL SURGERY BIOPSY BREAST OPEN INCISIONAL Bx of breast, incisional x3 BX BREAST PERC NEED W/GUID 04/18/2011 U/S Needle core bx LOQ left breast solid CYST/MOLE REMOVAL 08/2020 from chest EYE SURGERY HX Bilateral multiple laser treatments FNA WITH IMAGING 01/20/2010 U/S FNA left breast cysts x 2 PAST SURGICAL HISTORY OF 01/04/2016 excision ganglion of hand RPR 1ST INGUN HRNA AGE 3 YRS/> REDUCIBLE Hernia repair, inguinal US BIOPSY BREAST L 01/29/2006 US BRST CYST ASP PUNC LT 03/15/2009 U/S FNA left breast cysts x 2 FAMILY HISTORY Problem Relation Age of Onset Heart Mother CARDIOMYOPATHY Breast Cancer Mother 60 Stroke Mother Cancer Mother lung Cancer Father LUNG/prostate Stroke Father other (hip fracture) Father No Known Problems Son Diabetes Son JUVENILE SOCIAL HISTORY Social History Tobacco Use Smoking status: Former Years: 10 Types: Cigarettes Smokeless tobacco: Never Tobacco comments: Quit 19 yrs ago (today is 03/14/2009) Vaping Use Vaping Use: Never used Substance Use Topics Alcohol use: Yes Comment: daily Drug use: No REVIEW OF SYSTEMS Abdomen: No abdominal pain, nausea, vomiting, diarrhea, or constipation. No bloating, early satiety, indigestion, or increased flatulence. Bladder: No dysuria, gross hematuria, urinary frequency, urinary urgency, or incontinence Breast: No breast lumps, nipple d/c, overlying skin changes, redness or skin retraction Allergies and current medication updated:Yes EXAM: BP 118/80 Ht 5' 5.5 (1.66m) Wt 137 lb 6.4 oz (62.3kg) LMP 04/20/2009 BMI 22.51 kg/(m^2). GENERAL: pleasant, female in no apparent distress HEENT: Normocephalic and atraumatic NECK: full range of motion DERMATOLOGY: Normal, without lesions, non-icteric, and non-hirsute BREAST: soft, non-tender, symmetric, no dominant mass, normal nipple-areolar complex, no lymphadenopathy, and no nipple discharge CHEST: Normal inspiratory effort ABDOMEN: soft, non-tender, and no masses PELVIC: external genitalia normal, normal Bartholin's glands, urethra, Levelock's glands, no vulvar lesions, no cervical lesions, good vaginal support, physiologic discharge present, normal appearing perineal body and perianal region BIMANUAL: uterus normal size, shape and consistency, no adnexal masses, and non-tender RECTOVAGINAL: deferred. NEURO: exam grossly non-focal EXTREMITIES: normal ASSESSMENT/PLAN: 1) Health maintenance: Pap/HPV screening no longer needed Mammogram ordered Nutrition, exercise and routine health maintenance exams reviewed. Calcium/Vitamin D supplementation information provided. Colon cancer screening: colonoscopy ordered TSH/lipids/glucose: followed by PCP BMD: up to date 2) Follow up one year or sooner as needed Kaela Clark DO documented in this encounter [facility] 10-21-2023 Miscellaneous Notes October 21, 2023 PID: [id number] Connie Levi [address] [place] [address] Dear Ms. Levi, We are pleased to inform you that the results of your recent breast imaging exam on 10/18/2023 are normal. Your mammogram demonstrates that you [...] report will be kept on file at [facility] as part of your permanent medical record and are available for your continuing care. Thank you for allowing us to help in meeting your health care needs. Sincerely, Dr. Mccarthy Interpreting Radiologist [facility] (Normal over 40) documented in this encounter [facility] 10-03-2022 Miscellaneous Notes October 04, 2022 PID: [id number] Connie Levi [address] [place] [address] Dear Ms. Levi, We are pleased to inform you that the results of your recent breast imaging exam on 10/03/2022 are normal. Your mammogram demonstrates that you [...] report will be kept on file at [facility] as part of your permanent medical record and are available for your continuing care. Thank you for allowing us to help in meeting your health care needs. Sincerely, Dr. Peña Interpreting Radiologist [facility] (Normal over 40) documented in this encounter [facility] 10-03-2022 History of Presen t illness Narrative Radiology Service Progress Note PATIENT NAME: Connie Levi DATE OF SERVICE: October 03, 2022 TIME: 11:35 AM PATIENT IDENTITY VERIFICATION COMPLETED USING TWO (2) IDENTIFIERS: Name and Date of confirmed by patient verbally. FALL SCREENING: Has the patient had 2 falls in the last year or 1 fall with injury or currently using an Ambulatory Assistive Device (Walker, Cane, Wheelchair, Crutches, etc.)? No PATIENT GENDER DATA: Female. status: : No status: NO. PATIENT RELEVANT IMPLANT DATA REVIEWED: Not Applicable RADIOLOGY DEPARTMENT: Mammography PERIPHERAL IV DATA: Not applicable SIGNED BY: Zakiya Kidd [employer] October 03, 2022 11:35 AM documented in this encounter [facility] 11-14-2021 History of Presen t illness Narrative Radiology Service Progress Note PATIENT NAME: Connie Levi DATE OF SERVICE: November 14, 2021 TIME: 10:55 AM PATIENT IDENTITY VERIFICATION COMPLETED USING TWO (2) IDENTIFIERS: Name and Date of confirmed by patient verbally. FALL SCREENING: Has the patient had 2 falls in the last year or 1 fall with injury or currently using an Ambulatory Assistive Device (Walker, Cane, Wheelchair, Crutches, etc.)? No PATIENT GENDER DATA: Female. status: : No status: NO. PATIENT RELEVANT IMPLANT DATA REVIEWED: Not Applicable RADIOLOGY DEPARTMENT: Bone Density PERIPHERAL IV DATA: Not applicable SIGNED BY: RT Maren(R) November 14, 2021 10:55 AM documented in this encounter [facility] 01-13-2016 History of Past i llness Narrative Problem Noted Date Resolved Date Ganglion cyst 01/13/2016 06/19/2016 Finger mass, right 12/01/2015 06/19/2016 documented as of this encounter (statuses as of 11/15/2021) [facility] History of Past illness Narrative* Problem Noted Date Resolved Date Ganglion cyst 01/13/2016 06/19/2016 Finger mass, right 12/01/2015 06/19/2016 documented as of this encounter (statuses as of 10/05/2022) [facility] History of Past illness Narrative* Problem Noted Date Diagnosed Date Resolved Date Ganglion cyst 01/13/2016 06/19/2016 Finger mass, right 12/01/2015 6 documented as of this encounter (statuses as of 06/09/2023) [facility] History of Past illness Narrative* Problem Noted Date Diagnosed Date Resolved Date Ganglion cyst 01/13/2016 06/19/2016 Finger mass, right 12/01/2015 6 documented as of this encounter (statuses as of 10/19/2023) [facility] History of Past illness Narrative* Problem Noted Date Diagnosed Date Resolved Date Ganglion cyst 01/13/2016 06/19/2016 Finger mass, right 12/01/2015 6 documented as of this encounter (statuses as of 10/23/2023) [facility] Osteopenia, unspecified location [facility] noteNo assessment information availableWC[facility] Work Phone: evaluation note* Diagnosis Onset Date Resolution Status Fat necrosis due to trauma a cute Skin lesion of face acute Skin lesion of face acute [facility] Work Phone: evaluation note* Diagnosis Onset Date Resolution Status Fat necrosis due to trauma a cute Skin lesion of face acute Skin lesion of face acute Skin lesion of face acute [facility] [facility] Work Phone: evaluation note* Diagnosis Encounter for screening mammogram for breast cancer documented in this encounter [facility] note* Diagnosis Encounter for screening mammogram for breast cancer Dense breast tissue on mammogram documented in this encounter [facility] note* Diagnosis Encounter for gynecological examination (general) (routine) without abnormal findings- Primary Encounter for screening mammogram for malignant neoplasm of breast Other screening mammogram Dense breast tissue on mammogram, unspecified type Colon cancer screening Special screening for malignant neoplasms, colon documented in this encounter [facility] note* Diagnosis Special screening for malignant neoplasms, colon- Primary documented in this encounter [facility] note* Diagnosis Encounter for screening mammogram for malignant neoplasm of breast Other screening mammogram Dense breast tissue on mammogram, unspecified type documented in this encounter [facility] for referral (narrative)* Diagnostic Procedure Only (Routine) - Closed Specialty Diagnoses / Procedures Referred By Shona ayala Referred To Contact [facility] Diagnoses Encounter for screening mammogram for breast cancer Procedures NILAY SCREENING SCREENING MAMMOGRAPHY BI 2-VIEW BREAST INC CAD Kaela Clark MD [address] [place] [address] [facility] [address] [place] [phone] Referral ID Status Reason Start Date Expiration Date V isits Requested Visits Authorized [id number] Closed Auto-Generate d Referral 10/20/2021 11/19/2022 1 1 [facility] for referral (narrative)* Outpatient Procedure (Routine) - Pending Review Specialty Diagnoses / Procedures Referred By Shona ayala Referred To Contact [facility] Diagnoses Colon cancer screening Procedures COLONOSCOPY SCREENING COLONOSCOPY FLX DX W/COLLJ SPEC WHEN PFRMD Kaela Clark MD [address] [place] [address] [facility] [address] [place] [address] Referral ID Status Reason Start Date Expiration Date Visits Requested Visits Authorized [id number] Pending Review Auto-Generat ed Referral 01/17/2024 01/16/2025 1 1 * Diagnostic Procedure Only (Routine) - Authorized Specialty Diagnoses / Procedures Referred By Shona ayala Referred To Contact [facility] Diagnoses Encounter for screening mammogram for malignant neoplasm of breast Dense breast tissue on mammogram, unspecified type Procedures NILAY SCREENING W SCARLET SCREENING DIGITAL BREAST TOMOSYNTHESIS BI SCREENING MAMMOGRAPHY BI 2-VIEW BREAST INC Kaela Farnsworth MD [address] [place] [address] [facility] [address] [place] [address] Referral ID Status Reason Start Date Expiration Date Visits Requested Visits Authorized [id number] Authorized Auto-Generat ed Referral 01/16/2024 02/14/2025 1 1 [facility] for referral (narrative)No reason for referral information [facility]WC[facility] Work [facility]: Reason for visit Narrative* Diagnostic Procedure Only (Routine) - Closed Specialty Diagnoses / Procedures Referred By Shona ayala Referred To Contact [facility] Diagnoses Encounter for screening mammogram for breast cancer Procedures NILAY SCREENING SCREENING MAMMOGRAPHY BI 2-VIEW BREAST INC Kaela Farnsworth MD [address] [place] [address] [facility] [address] [place] [address] Referral ID Status Reason Start Date Expiration Date V isits Requested Visits Authorized [id number] Closed Auto-Generate d Referral 10/20/2021 11/19/2022 1 1 [facility] for visit Narrative* Diagnostic Procedure Only (Routine) - Closed Specialty Diagnoses / Procedures Referred By Shona ayala Referred To Contact [facility] Diagnoses Encounter for screening mammogram for breast cancer Dense breast tissue on mammogram Procedures NILAY SCREENING W SCARLET SCREENING DIGITAL BREAST TOMOSYNTHESIS BI SCREENING MAMMOGRAPHY BI 2-VIEW BREAST INC Kaela Farnsworth MD [address] [place] [address] [facility] [address] [place] [address] Referral ID Status Reason Start Date Expiration Date V isits Requested Visits Authorized [id number] Closed Auto-Generate d Referral 12/20/2022 01/19/2024 1 1 [facility] Diagnostic Procedure Only (Routine) - Closed Specialty Diagnoses / Procedures Referred By Contac t Referred To Contact [facility] Diagnoses Encounter for screening mammogram for malignant neoplasm of breast Dense breast tissue on mammogram, unspecified type Procedures NILAY SCREENING W SCARLET SCREENING DIGITAL BREAST TOMOSYNTHESIS BI SCREENING MAMMOGRAPHY BI 2-VIEW BREAST INC Kaela Farnsworth MD [address] [place] [address] Phone: tel: fax: [facility] [place] [address] Referral ID Status Reason Start Date Expiration Date V isits Requested Visits Authorized [id number] Closed Auto-Generate d Referral 01/16/2024 02/14/2025 1 1 [facility] Advance Directives No Advanced Directives Records FoundDocuments on File Type Date Recorded 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 Advance Directive(s) Advance Directive(s) 01/04/2016 7:55 AM Chief Complaint and Reason for Visit Chief Complaint LUMP ON LIP LIP LESION FACIAL LESION Lip incision check, suture coming out Reason for Visit Fat necrosis due to trauma Skin lesion of face Skin lesion of face Chief Complaint LUMP ON LIP LIP LESION FACIAL LESION Lip incision check, suture coming out WOUND CHECK Reason for Visit Fat necrosis due to trauma Skin lesion of face Skin lesion of face Skin lesion of face Chief Complaint EORDER Chief Complaint Admit Date POSTMENOPAUSAL December 16, 2024 10:43 am Summary Purpose Family History No Family History Records FoundNo Family History Records Found Additional Source Comments Source Comments (unrecognize d section and content) In the event this informatio n is protected by the Federal Confidentiality of Alcohol and Drug Abuse Patient Records regulations: The Federal rules restrict any use of the information to criminally investigate or prosecute any alcohol or drug abuse patient.[facility] Company[facility] the event this information is protected by the Federal Confidentiality of Alcohol and Drug Abuse Patient Records regulations: The Federal rules restrict any use of the information to criminally investigate or prosecute any alcohol or drug abuse patient.[facility] Company[facility] the event this information is protected by the Federal Confidentiality of Alcohol and Drug Abuse Patient Records regulations: The Federal rules restrict any use of the information to criminally investigate or prosecute any alcohol or drug abuse patient.[facility] CompanyIn the event this information is protected by the Federal Confidentiality of Alcohol and Drug Abuse Patient Records regulations: The Federal rules restrict any use of the information to criminally investigate or prosecute any alcohol or drug abuse patient.[facility] CompanyIn the event this information is protected by the Federal Confidentiality of Alcohol and Drug Abuse Patient Records regulations: The Federal rules restrict any use of the information to criminally investigate or prosecute any alcohol or drug abuse patient.[facility] Company[facility] the event this information is protected by the Federal Confidentiality of Alcohol and Drug Abuse Patient Records regulations: The Federal rules restrict any use of the information to criminally investigate or prosecute any alcohol or drug abuse patient.[facility] CompanyIn the event this information is protected by the Federal Confidentiality of Alcohol and Drug Abuse Patient Records regulations: The Federal rules restrict any use of the information to criminally investigate or prosecute any alcohol or drug abuse patient.[facility] CompanyIn the event this information is protected by the Federal Confidentiality of Alcohol and Drug Abuse Patient Records regulations: The Federal rules restrict any use of the information to criminally investigate or prosecute any alcohol or drug abuse patient.[facility] CompanyIn the event this information is protected by the Federal Confidentiality of Alcohol and Drug Abuse Patient Records regulations: The Federal rules restrict any use of the information to criminally investigate or prosecute any alcohol or drug abuse patient.[facility] Care Teams (unrecognized sec tion and content) 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 Yodit Peña MD Family Provider Active Dr. Yodit Arguello MD Primary Care Provider Active Team Status: Inactive Member Role Status Dates Dr. Yodit Arguello MD Primary Care Provider, [facility] Provider Active Roller Print Tender Relationship Specialty Start Date End Date Yodit Peña MD [address] [place], [place] [address] [place], [place] [id number] PCP - General 11/23/03 Roller Print Tender Relationship Specialty Start Date End Date Yoidt Peña MD [address] [place], [place] [address] PCP - General 11/23/03 Roller Print Tender Relationship Specialty Start Date End Date Yodit Peña MD [address] [place], [place] [id number] PCP - General 11/23/03 Team Status: Inactive Member Role Status Dates Dr. Yodit Arguello MD Primary Care Provider Active Pina Harris , COACH CLEANER-C Attending Provider, Referring Pr anthony Active Roller Print Tender Relationship Specialty Start Date End Date Yodit Peña MD [address] [place] [address] PCP - General 11/23/03 Roller Print Tender Relationship Specialty Start Date End Date Yodit Peña MD [address] [place] [address] PCP - General 11/23/03 Roller Print Tender Relationship Specialty Start Date End Date Yodit Peña MD [address] [place] [address] PCP - General 11/23/03 Team Status: Active Member Role Status Dates Dr. Yodit Arguello MD Primary Care Provider Active Team Status: Inactive Member Role Status Dates Dr. Yodit Arguello MD Primary Care Provider Active Start: December 16, 2024 End: December 16, 2024 Dr. Yodit Arguello MD Attending Provider Active Start: December 16, 2024 End: December 16, 2024 Dr. Yodit Arguello MD Referring Provider Active Start: December 16, 2024 End: December 16, 2024 Roller Print Tender Relationship Specialty Start Date End Date Yodit Peña MD [address] [place] [address] PCP - General 11/23/03 Goals (unrecognized section and content) Goals may be documented in a n alternate sectionGoals may be documented in an alternate sectionGoals may be documented in an alternate sectionGoals may be documented in an alternate sectionGoals may be documented in an alternate sectionGoals may be documented in an alternate sectionGoals may be documented in an alternate section Reason for Visit (unrecogniz ed section and content) Reason Comments [facility] INFORMATION SOURCE (unrecogn ized section and content) DATE CREATED AUTHOR 12/20/2024 [facility] DATE CREATED AUTHOR AUTHOR'S LIZA MOSS 03/14/2025 [facility] FOR RECORDS PERTAINING TO PATIENTS WHO ARE OR HAVE BEEN ENROLLED IN A CHEMICAL DEPENDENCY/SUBSTANCEABUSE PROGRAM, SOME INFORMATION MAY BE OMITTED. This clinical summary was aggregated from multiple sources. Caution should be exercised in using it in the provision of clinical care. This summary normalizes information from multiple sources, and as a consequence, information in this document may materially change the coding, format and clinical context of patient data. In addition, data may be omitted in some cases. CLINICAL DECISIONS SHOULD BE BASED ON THE PRIMARY CLINICAL RECORDS. [facility] provides no warranty or guarantee of the accuracy or completeness of information in this document.
== END | disposition home or self-care (01) ==
LOC: MTLAB 13:51
PROVIDERS: PCP Family Medicine; Visit Provider Family Medicine
DX: E78.00 Pure hypercholesterolemia, unspecified (principal); M85.80 Other specified disorders of bone density and structure, unspecified site
CPT/HCPCS: 36415; 80053; 80061; 82306; 85025

== ENCOUNTER → 2025-06-24 | Outpatient (CLI) | payer MEDICARE, SELFPAY ==
[2025-06-24 13:05] LABS: Hepatitis B Surface Antigen Nonreactive (Nonreactive); Hepatitis C Antibody Nonreactive (Nonreactive)
== END | disposition home or self-care (01) ==
LOC: MFPLAB 10:14
PROVIDERS: PCP Family Medicine; Referring Provider Family Medicine; Visit Provider Family Medicine
DX: R79.89 Other specified abnormal findings of blood chemistry (principal)
CPT/HCPCS: 36415; 86706; 86803; 87340